=== PATIENT | female | born 1945 | race Caucasian/White ===

== ENCOUNTER → 2016-08-03 | Outpatient (CLI) | payer MEDICARE, OTHER ==
[~2016-08-03] MED LIST: /ACET5TA PO; /AMLO25TA PO; ALBU17IN INH; ALBU17IN NEB; ALBU83IN NEB; AMBI10TA PO; AMLO10TA PO; APRESOLINE PO; ASPI81TA51 PO; ATEN50TA2 PO; AVAP75TA PO; CLOP75TA2 PO; COLA100C PO; DILT60TA PO; DRON40TA PO; ELIQ5TAB PO; IPRASOL4 NEB; LASI40TA PO; LIPI10TA PO; LOPR50TA PO; MAGN400T5 PO; MICR10CA PO; NEUR300C PO; OMEG100011 PO; PEPC1TAB2 PO; PERC7.5T12 PO; PERCOCET PO; SYMB16INH INH; TIOT18INH INH; TYLE325T5 PO; VITA100037 PO; ZOCO20TA PO
[2016-08-03 12:51] LABS: CALCIUM LEVEL 9.3 MG/DL (8.8-10.2); CREATININE FOR GFR 1.45 MG/DL (0.55-1.02); GLOMERULAR FILTRATION RATE 37.9 (>39); POTASSIUM SERUM 4.3 MEQ/L (3.5-5.1)
--- NOTE | 2016-08-03 16:44 | ECGEPIP ---
Stationary ECG Study 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
== END ==
LOC: M LAB 11:16
PROVIDERS: ATTEND Ophthalmology
DX: Z01.818 Encounter for other preprocedural examination (principal); H25.13 Age-related nuclear cataract, bilateral

== ENCOUNTER → 2016-11-10 | Outpatient (CLI) | payer MEDICARE, OTHER, BC ==
[~2016-11-10] MED LIST changes: -COLA100C PO; +COLA100C3 PO
--- NOTE | 2016-11-10 12:07 | REP ---
Pain after sustaining a fall 3 weeks ago. Comparison examination: None. There is asymmetric hip joint space narrowing with buttressing and slight marginal osteophytosis. There is no evidence of an acute fracture or dislocation. IMPRESSION: Chronic changes.
== END ==
LOC: M CLY 11:11
PROVIDERS: ATTEND Nurse Practitioner Family
DX: M25.551 Pain in right hip (principal); W19.XXXD Unspecified fall, subsequent encounter; Y92.89 Other specified places as the place of occurrence of the external cause; Y93.89 Activity, other specified; Y99.8 Other external cause status; N18.9 Chronic kidney disease, unspecified; M54.30 Sciatica, unspecified side; J98.4 Other disorders of lung; B02.29 Other postherpetic nervous system involvement; E78.4 Other hyperlipidemia; E55.9 Vitamin D deficiency, unspecified
CPT/HCPCS: 73502; 94010; G0463

== ENCOUNTER → 2016-12-04 | Outpatient (REF) | payer MEDICARE, OTHER ==
[2016-12-04 13:31] LABS: ALBUMIN 3.9 GM/DL (3.2-5.2); CALCIUM LEVEL 9.9 MG/DL (8.8-10.2); CREATININE FOR GFR 1.74 MG/DL (0.55-1.02); GLOMERULAR FILTRATION RATE 30.7 (>39); PHOSPHORUS LEVEL 4.4 MG/DL (2.5-4.9); POTASSIUM SERUM 4.3 MEQ/L (3.5-5.1)
== END ==
LOC: M SFHCCLAY 08:53
PROVIDERS: ATTEND Nurse Practitioner Family
DX: E78.4 Other hyperlipidemia (principal); N18.9 Chronic kidney disease, unspecified; E55.9 Vitamin D deficiency, unspecified; J98.4 Other disorders of lung

== ENCOUNTER → 2016-12-14 | Outpatient (CLI) | payer MEDICARE, OTHER ==
--- NOTE | 2016-12-14 12:10 | REP ---
Lumbar spine: There are no comparisons. There are five views. Vertebral body heights and alignment are normal. There is a degenerative disc disease at the L 02/03 and 03/04 levels. There is mild facet osteoarthritis. The pedicles and sacroiliac articulations are unremarkable. Impression: Degenerative disc disease. Mild facet osteoarthritis. Signed by Sebas Real MD 12/14/2016 12:01 P
--- NOTE | 2016-12-14 12:47 | REP ---
REASON: Worsening right hip pain. COMPARISON: 11/10/2016 a right hip series. There is bilateral hip degenerative change. There is no evidence of an acute hip fracture or dislocation. Degenerative changes are seen involving the sacroiliac joints and imaged spine. IMPRESSION: Chronic changes as described above. Since the patient has chronic pain consider followup with MRI.
== END ==
LOC: M CLY 11:04
PROVIDERS: ATTEND Nurse Practitioner Family
DX: M53.87 Other specified dorsopathies, lumbosacral region (principal); M16.0 Bilateral primary osteoarthritis of hip

== ENCOUNTER → 2016-12-20 | Outpatient (CLI) | payer MEDICARE, BC, OTHER ==
--- NOTE | 2016-12-20 12:26 | REP ---
MR LUMBAR SPINE WITHOUT CONTRAST: HISTORY: Back pain. Decreased signal intensity on T2-weighted images is present in the lumbar intervertebral discs. The discs are decreased in height. These findings are consistent with disc degeneration. There is no disc bulge or herniation at the L1-2 level. The L1 nerves exit the neural foramina without compression. A diffuse disc bulge is present at the L2-3 level. There is minimal compression of the thecal sac. There is hypertrophy of the ligamenta flava and posterior articulating facets. The L2 nerves exit the neural foramina without compression. A diffuse disc bulge is present at the L3-4 level. There is minimal compression of the thecal sac. There is hypertrophy of the ligamenta flava and posterior articulating facets. The L3 nerves exit the neural foramina without compression. A diffuse disc bulge is present at the L4-5 level. There is hypertrophy of the ligamenta flava and posterior articulating facets. These findings produce mild central canal stenosis. The L4 nerves exit the neural foramina without compression. Fluid is present in the L4-5 facet joints. A diffuse disc bulge and small right paracentral disc extrusion are present at the L5-S1 level. There is inferior migration of disc material. There is minimal compression of the thecal sac and right S1 nerve as it exits the thecal sac. There is hypertrophy of the posterior articulating facets. The L5 nerves exit the neural foramina without compression. The conus medullaris is normal in appearance terminating at the level of the L1-2 intervertebral disc. Increased signal intensity on T2-weighted images is present in the endplates of the L2 through L5 vertebral bodies. This represents degenerative change. IMPRESSION: 1. Diffuse disc bulges at the L2-3 and L3-4 levels with minimal thecal sac compression. 2. Mild central canal stenosis at the L4-5 level secondary to disc bulge, ligamentous and facet hypertrophy. 3. Diffuse disc bulge and small right paracentral disc extrusion at the L5-S1 level with minimal compression of the thecal sac and right S1 nerve as it exits the thecal sac. Signed by Tarun Pardo MD 12/20/2016 12:27 P
--- NOTE | 2016-12-20 15:23 | REP ---
MRI PELVIS WITHOUT CONTRAST: HISTORY: Sciatica, unspecified laterality. The patient relates a fall a few days ago with low back and hip pain. Comparison radiographs of the pelvis are from December 14, 2016. MR TECHNIQUE: Axial coronal and sagittal imaging planes were utilized. T1- and T2-weighted scans were obtained. Sequences include spin echo, turbo spin echo and STIR fat sat sequences. MRI FINDINGS: Cortical and medullary bone signal intensity are normal in the proximal femurs, bony pelvic ring, and sacrum. No occult fracture is seen. There is mild osteoarthritic facet hypertrophy in the L5-S1 and L4-5 facets bilaterally. There is evidence of diffuse osteopenia. There is mild osteoarthritic spurring in the hip joints bilaterally. There is mild degenerative disc narrowing at L3-4 and to a lesser extent at L4-5 in the lumbar spine. No pelvic mass adenopathy or abdominal wall defect is seen. There is left colonic diverticulosis. The uterus is surgically absent. IMPRESSION: No acute abnormality noted. Diffuse osteoporosis and osteoarthritic changes are noted. Signed by Stuart Cruz MD 12/20/2016 04:32 P
== END ==
LOC: M RAD 09:39
PROVIDERS: ATTEND Nurse Practitioner Family
DX: M48.06 Spinal stenosis, lumbar region (principal); M51.27 Other intervertebral disc displacement, lumbosacral region; M81.8 Other osteoporosis without current pathological fracture

== ENCOUNTER 2017-03-12 13:02 | Inpatient (IN) | payer MEDICARE, BC, OTHER ==
[~2017-03-12] VITALS: Ht 160 cm; Wt 68.3 kg
[~2017-03-12 13:02] MED LIST changes: -AVAP75TA PO; +AVAP75TA7 PO; -COLA100C3 PO; +COLA100C5 PO; -VITA100037 PO; +VITA100067 PO
[2017-03-12 13:45] LABS: BASO # 0.2 K/mm3 (0.0-0.2); BASO % 1.2 % (0.0-1.0); EOS # 0.4 K/mm3 (0.0-0.50); EOS % 3.1 % (0.0-3.0); LARGE UNSTAINED CELL # 0.2 K/mm3 (0.0-0.4); LARGE UNSTAINED CELL % 1.8 % (0.0-4.0); LYMPH # 1.5 K/mm3 (1.5-4.5); LYMPH % 11.1 % (24.0-44.0); MEAN CORPUSCULAR HEMOGLOBIN 31.1 pg (27.0-33.0); MEAN CORPUSCULAR HGB CONC 32.7 g/dl (32.0-36.5); MEAN CORPUSCULAR VOLUME 95.1 fl (80.0-96.0); MONO # 0.7 K/mm3 (0.0-0.8); MONO % 5.5 % (0.0-5.0); NEUTROPHILS # 9.1 K/mm3 (1.8-7.7); NEUTROPHILS % 77.2 % (36.0-66.0); PLATELET COUNT, AUTOMATED 343 k/mm3 (150-450); RED CELL DISTRIBUTION WIDTH 13.4 % (11.5-14.5); WHITE BLOOD COUNT 11.8 K/mm3 (4.0-10.0)
[2017-03-12 13:47] LABS: INR 1.54
[2017-03-12 13:56] LABS: ALBUMIN 3.9 GM/DL (3.2-5.2); ALBUMIN/GLOBULIN RATIO 1.11 (1.00-1.93); ALKALINE PHOSPHATASE 58 U/L (45-117); ALT/SGPT 29 U/L (12-78); ANION GAP 9 MEQ/L (8-16); AST/SGOT 18 U/L (15-37); BILIRUBIN,DIRECT 0.1 MG/DL (0.0-0.2); BILIRUBIN,TOTAL 0.4 MG/DL (0.2-1.0); BLOOD UREA NITROGEN 36 MG/DL (7-18); CALCIUM LEVEL 8.5 MG/DL (8.8-10.2); CARBON DIOXIDE LEVEL 29 MEQ/L (21-32); CHLORIDE LEVEL 103 MEQ/L (98-107); CREATININE FOR GFR 1.44 MG/DL (0.55-1.02); GLOMERULAR FILTRATION RATE 38.2 (>39); GLUCOSE, FASTING 93 MG/DL (83-110); MAGNESIUM LEVEL 2.3 MG/DL (1.8-2.4); PHOSPHORUS LEVEL 2.7 MG/DL (2.5-4.9); POTASSIUM SERUM 3.8 MEQ/L (3.5-5.1); SODIUM LEVEL 141 MEQ/L (136-145); TOTAL PROTEIN 7.4 GM/DL (6.4-8.2)
[2017-03-12 14:01] LABS: FREE T4 1.25 NG/DL (0.76-1.46)
[2017-03-12] MEDS ORDERED: ASPI81TA24 PO (15:17)
[2017-03-12] MEDS ORDERED: CALC1CAP31 PO (15:17)
[2017-03-12] MEDS ORDERED: PERC5TAB12 PO (15:17)
[2017-03-12] MEDS ORDERED: AMBI10TA PO (15:17)
[2017-03-12] MEDS ORDERED: ELIQ5TAB PO (15:17)
[2017-03-12] MEDS ORDERED: VITA100066 PO (15:17)
[2017-03-12] MEDS ORDERED: FISH1000 PO (15:17)
[2017-03-12] MEDS ORDERED: IBAN150T5 PO (15:17)
[2017-03-12] MEDS ORDERED: ATEN25TA PO (15:17)
[2017-03-12] MEDS ORDERED: ALBU17IN INH (15:17)
[2017-03-12] MEDS ORDERED: ATOR1TAB19 PO (15:17)
[2017-03-12] MEDS ORDERED: SPIR1CAP INH (15:17)
[2017-03-12] MEDS ORDERED: FURO40TA2 PO (15:17)
--- NOTE | 2017-03-12 15:27 | REP ---
CHEST X-RAY: TWO VIEWS. HISTORY: Palpitations and weakness. COMPARISON: Chest x-ray 05/15/2016. FINDINGS: EKG monitoring electrodes overlie the chest. Heart is not enlarged. The aorta is somewhat tortuous. Pleural angles are sharp. There is no significant bony abnormality. IMPRESSION: No active disease. Signed by Stuart Cruz MD 03/12/2017 06:35 P
[2017-03-12] MEDS ORDERED: ATENOLOL 25 MG TAB PO PRN (18:45)
[2017-03-12] MEDS ORDERED: zolPIDEM TARTRATE 10MG TAB PO PRN (18:45)
[2017-03-12] MEDS ORDERED: PERCOCET 5MG/325MG TAB PO PRN (18:45)
[2017-03-12] MEDS ORDERED: ACETAMINOPHEN TAB 650MG DOSE (2X325MG) PO PRN (18:45)
[2017-03-12] MEDS ORDERED: ALBUTEROL 90 MCG/ACT 8GM HFA INHALER INH PRN (18:45)
[2017-03-12] MEDS ORDERED: ONDANSETRON 4MG/2ML VIAL (J2405) IV PRN (18:45)
[2017-03-12] MEDS ORDERED: APIXABAN 5 MG TAB (ELIQUIS) PO SCH (21:00)
[2017-03-12] MEDS: ASPIRIN 81 MG ENTERIC TAB PO SCH (21:28)
[2017-03-12] MEDS: SENOKOT S TAB PO SCH (21:28)
[2017-03-12] MEDS: ENOXAPARIN 60 MG/0.6 ML SYR (J1650) SC SCH (21:28)
[2017-03-13 01:10] VITALS: BP 145/67
[2017-03-13] MEDS: ATORVASTATIN 10 MG TAB PO SCH ×2 (01:17→21:47)
[2017-03-13 04:45] VITALS: BP 128/65
--- NOTE | 2017-03-13 05:26 | HPE ---
DATE OF ADMISSION: 03/12/2017 PRIMARY CARE PROVIDER: Layla Madrid. DESK PENS ASSEMBLER: Dr. Man. DEMAND EQUIPMENT REPAIRER: Dr. Moore. CHIEF COMPLAINT: Palpitations and generalized weakness. HISTORY OF PRESENT ILLNESS: This is a 71-year-old female patient with underlying medical history of atrial fibrillation on Eliquis for anticoagulation, venous insufficiency, carotid stenosis, hypertension, dyslipidemia, vitamin D deficiency, diverticulosis, chronic obstructive pulmonary disease (COPD) with coronary arterial disease and cardiac stent, chronic kidney disease (CKD), who presented to the hospital because yesterday the patient felt palpitations and found to have a heart rate of 177 had subsequently taken beta blockers, and this morning the patient woke up with the heart rate in the 50s but felt generalized weakness and with vague sensations in the chest. Subsequently the patient presented to the emergency room. In the emergency room, the patient was found to have new T-wave inversions, subsequently discussed with cardiology. Request was made for patient to be admitted to the hospital. The patient currently denies any palpitations. Reported that vague sensation in the chest has been resolved. Denies any fevers, chills, chest pain, pressure, discomfort. Denies any shortness of breath. Currently comfortable. ALLERGIES: 1. AUGMENTIN. 2. CLINDAMYCIN. 3. PENICILLIN. 4. PENICILLIN CLASS REACTORS. 5. PENTAZOCINE. PAST MEDICAL HISTORY: 1. Atrial fibrillation on anticoagulation. 2. Stasis dermatitis. 3. Venous insufficiency. 4. Carotid stenosis. 5. Hypertension. 6. Elevated cholesterol. 7. Low vitamin D. 8. Diverticulosis. 9. Osteopenia. PAST SURGICAL HISTORY: 1. Cardiac stent 2012. 2. Carotid endarterectomy. SOCIAL HISTORY: Smoked one pack per day. Quit about two years ago. Occasionally drinks a beer. REVIEW OF SYSTEMS: Reported palpitations and vague chest discomfort. All other review of systems negative. FAMILY HISTORY: Noncontributory. HOME MEDICATIONS: - Ventolin inhaler four times a day as needed - Eliquis 5 mg by mouth twice a day - aspirin 81 mg by mouth daily - atenolol 25 mg by mouth daily as needed - Lipitor 10 mg by mouth at bedtime - calcitriol 0.25 mcg by mouth five times a week - vitamin D 1000 units by mouth daily - fish oil 1000 mg by mouth daily - Lasix 40 mg by mouth daily - ibandronate 150 mg by mouth every month - Percocet 5/325 mg half tablet by mouth every six hours as needed - Spiriva inhalation daily - Ambien 10 mg by mouth at bedtime PHYSICAL EXAMINATION: VITAL SIGNS: Temperature 96.8, pulse 78, respirations 16, blood pressure 128/61, pulse oximetry 91% on room air. GENERAL: Patient alert and oriented times three in no acute distress. PULMONARY: Bilaterally clear to auscultation. CARDIAC: Irregularly irregular. No tachycardia. ABDOMEN: Soft, nontender. Positive bowel sounds. EXTREMITIES: No clubbing, cyanosis or edema. NEUROLOGIC: No focal deficits. LABORATORY DATA: WBC 11.8, hemoglobin and hematocrit 15.1 over 46.1, platelets 343. Chemistry: Sodium 141, potassium 3.8, chloride 103, bicarbonate 29, BUN 36, creatinine 1.44. Cardiac troponin negative times two. ASSESSMENT AND PLAN: This is a 71-year-old female patient with underlying medical history of chronic kidney disease, atrial fibrillation on Eliquis, venous insufficiency, carotid artery disease, hypertension, dyslipidemia, coronary arterial disease, admitted with palpitations and new T-wave inversions. Electrocardiogram (EKG) showing atrial fibrillation with T-wave inversion V1 through V4. 1. Atrial fibrillation with palpitations and chest discomfort, with new T-wave inversions. The patient's anticoagulation switched to Lovenox. Cardiology consulted. Trend cardiac enzymes, negative times two. Continue aspirin, beta blockers. Monitor blood pressure. Continue Lasix. Telemetry monitoring. 2. Chronic kidney disease (CKD). BUN and creatinine at baseline. Continue to monitor. 3. Chronic obstructive pulmonary disease (COPD). Continue current medications. 4. Atrial fibrillation. Patient on anticoagulation for Lovenox as per Cardiology. Continue beta blockers. Patient on as-needed beta rene which does not make sense. Will further discuss the case with cardiology. 5. Coronary arterial disease. Continue beta rene, aspirin, on Lovenox therapeutic, statin. Will continue to monitor. 6. Deep venous thrombosis (DVT) prophylaxis. Patient on therapeutic anticoagulation. DISPOSITION: Pending cardiology followup. Potential transfer to [facility] for cardiac catheterization if patient's condition does not improve.
--- NOTE | 2017-03-13 05:49 | ECGEPIP ---
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
[2017-03-13 06:01] LABS: MEAN CORPUSCULAR HEMOGLOBIN 30.8 pg (27.0-33.0); MEAN CORPUSCULAR VOLUME 93.4 fl (80.0-96.0); RED CELL DISTRIBUTION WIDTH 13.2 % (11.5-14.5); WHITE BLOOD COUNT 9.3 K/mm3 (4.0-10.0)
[2017-03-13 06:23] LABS: CALCIUM LEVEL 8.8 MG/DL (8.8-10.2); CREATININE FOR GFR 1.29 MG/DL (0.55-1.02); GLOMERULAR FILTRATION RATE 43.4 (>39); MAGNESIUM LEVEL 2.3 MG/DL (1.8-2.4); POTASSIUM SERUM 3.7 MEQ/L (3.5-5.1)
[2017-03-13 07:40] VITALS: BP 146/63
[2017-03-13] MEDS ORDERED: TIOTROPIUM INHALER/CAPSULE (SPIRIVA) INH SCH (08:00)
[2017-03-13] MEDS ORDERED: VITAMIN D 1,000 INTERNATIONAL UNITS TABLET PO SCH (09:00)
[2017-03-13] MEDS ORDERED: OMEGA-3 1050MG CAPSULE PO SCH (09:00)
[2017-03-13] MEDS: ATENOLOL 25 MG TAB PO SCH ×2 (09:00→09:32)
[2017-03-13] MEDS ORDERED: FUROSEMIDE 40 MG TAB PO SCH (09:00)
[2017-03-13] MEDS: ENOXAPARIN 60 MG/0.6 ML SYR (J1650) SC SCH ×2 (09:31→21:48)
[2017-03-13] MEDS: SENOKOT S TAB PO SCH ×2 (09:32→21:47)
--- NOTE | 2017-03-13 09:36 | ECGEPIP ---
Stationary ECG Study [facility] - ED Test Date: 2017-03-12 Pat Name: BRAD GARCIA Department: Room: - Gender: F Transportation Dispatch Manager: rn : 1945 Requested By: SUSI Porter Order Number: [id number] Reading MD: Whit Edgar Measurements Intervals [place] Rate: 58 P: 61 ME: 169 QRS: -4 QRSD: 81 T: 162 QT: 458 QTc: 453 Interpretive Statements SINUS BRADYCARDIA LAD INFERIOR INFARCT, AGE INDETERMINATE ST DEVIATION AND MARKED T-WAVE ABNORMALITY, CONSIDER ANTEROLATERAL ISCHEMIA, NEW 08/03/16, CLINICAL CORRELATION DECREASED RATE 08/03/16 Electronically Signed On 03-13-2017 9:36:30 EDT by Whit Edgar
--- NOTE | 2017-03-13 09:40 | ECGEPIP ---
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
--- NOTE | 2017-03-13 10:33 | CR ---
DATE OF CONSULTATION: 03/13/2017 REFERRING PHYSICIAN: DR. Keya Dyer INDICATION: Atrial fibrillation, abnormal electrocardiogram (ECG). HISTORY OF PRESENT ILLNESS: Mrs. Aguirre is a pleasant 71-year-old female who is a patient of my partner Dr. Man. She presented to [facility] yesterday after she contacted our office and was instructed to do so. She had an episode of palpitations the day prior to admission. She has known paroxysmal atrial fibrillation and she typically would take a dose of atenolol and after few hours the palpitations resolve. The same thing happened this time but her heart rate was higher than typically present. She detected by her pulse ox monitor a ventricular rate 177 beats per minute. Then after she woke up yesterday morning, she actually felt tired and her heart rate was only about 50 beats per minute. On presentation to the emergency room (ER), she was relatively asymptomatic but had deep precordial T-wave inversions that are new compared to her prior electrocardiogram available from July. She ruled out for myocardial infarction with no elevation in troponin but she had a very small elevation in the CK-MB fraction. She does admit that during the episode of palpitations, she did have some chest discomfort but it was not overly severe. The dominant sensation was palpitation. PAST MEDICAL HISTORY: 1. Paroxysmal atrial fibrillation. She reports that recently she has had episodes as frequently as several times a week. The frequency has been increasing progressively 2. Coronary artery disease status post percutaneous coronary intervention (PCI) with bare metal stent to left circumflex artery in 2012. Her last evaluation for ischemia was a nuclear stress test last year that was negative. She has preserved left ventricular systolic function based on echocardiogram from December 2015. 3. Peripheral vascular disease. She has history of right carotid endarterectomy. 4. Hypertension. 5. Dyslipidemia. 6. Diverticulosis. 7. Chronic obstructive pulmonary disease (COPD). 8. Osteopenia. PAST SURGICAL HISTORY: Carotid endarterectomy. Herniorrhaphy. Hysterectomy. Tonsillectomy. Cataract surgery Appendectomy. FAMILY HISTORY: No longer relevant. Her father has from unclear reason and there are no first-degree relatives with early coronary artery disease. SOCIAL HISTORY: The patient is an ex-smoker. She quit approximately 4 years ago. There is no alcohol use. She currently lives alone. OUTPATIENT MEDICATIONS: - Ventolin as needed - Eliquis 5 twice a day - aspirin 81 a day - atenolol 25 mg daily on days when she has palpitations - Lipitor 10 mg a day - calcitriol 0.25 five times a week - vitamin D 1000 a day - fish oil 1000 a day - Lasix 40 a day - Percocet as needed - Spiriva - Ambien ALLERGIES: She reports allergy or intolerance to AUGMENTIN CLINDAMYCIN and PENICILLIN and PENTAZOCINE. REVIEW OF SYSTEMS: On the review of systems, there is no history of stroke. She denies any recent fever, nausea, vomiting, diarrhea. She does not have episode of chest discomfort outside the episode of atrial fibrillation. There is no paroxysmal nocturnal dyspnea (PND), orthopnea. She typically sleeps with oxygen. On no abdominal pain. No blood in her stools. No hematemesis. No peripheral edema. No syncope. She has been lately quite debilitated due to orthopedic reasons with back pain and knee pain. PHYSICAL EXAMINATION: Mrs. Aguirre is a 71-year-old female who appears to be tired but otherwise comfortable and in no acute distress. Blood pressure 146/63, heart rate has been mostly in 60s and occasionally 70s while in sinus rhythm. She is afebrile. Saturation is 90-96% on room air. Her jugular venous pulse (JVP) is not elevated. There is a healed scar of the right carotid endarterectomy. Lungs are clear to auscultation with good air movement. Heart: Exam reveals regular rhythm. There is murmur at the base approximately1-2/6 intensity radiating to both carotid arteries. I do not appreciate a rub or gallop. Abdomen is soft, nontender. No hepatosplenomegaly. There is no peripheral edema per pulses are of good quality. LABORATORY: Basic metabolic panel: Potassium 3.7, BUN 35, creatinine 1.34, GFR 43 and glucose is 106. There are four sets of cardiac enzyme. Her troponin is consistently negative. Her CK MB peaked at 10.1, which was the initial one. The relative index, at that point, was 14. BNP is 290, albumin 3.9, TSH 1.4. CBC is normal and her INR is 1.5. There are several ECGs all revealing sinus rhythm and precordial T-wave inversions which are new compared to EKGs from July. Review of telemetry tracing reveals ongoing sinus rhythm with occasional ventricular ectopy. She did have a chest x-ray in the emergency room that did not reveal any obvious abnormality suggestive of CHF or cardiomegaly. ASSESSMENT/PLAN: Mrs. Aguirre is a 71-year-old female who has established coronary artery disease and who presents after an episode of atrial fibrillation with rapid ventricular response. She has a new T-wave inversion on EKG and had some degree of chest discomfort during the episode. I see two separate issues. 1. Atrial fibrillation: So far she has been treated with as needed use of atenolol. Because the frequency is progressively increasing I think this will not be acceptable. She was started on daily atenolol in the hospital, which I agree with. She most likely will need additional antiarrhythmics. Alternative is ablation. I ask the primary team to discontinue Eliquis to allow for potential cardiac catheterization and she has been currently on Lovenox. I spoke with the patient and her [id number] and we agreed that we will try to transfer to [place] for an angiogram. Provided she has no new coronary artery disease, she can also be seen by electrophysiology to assist with further management of atrial fibrillation. 2. The second issues coronary artery disease. Because she has a new T-wave abnormality and had episode of chest discomfort during tachycardia, I believe it is appropriate to pursue coronary angiogram. I spoke about the plan with the patient and Dr. Man and they are both in agreement. I offered the alternative of conservative management but we decided to use the invasive root for expedition and also due to the option of electrophysiology consultation at the same time. Thank you for this consultation. [employer]
--- NOTE | 2017-03-13 10:37 | IPNPDOC ---
Subjective Date Seen The patient was seen on 03/13/17. Subjective Chief Complaint/HPI The patient is a 71-year-old female admitted with a reason for visit of Palpitations. Events since last encounter Pt c/o intermittent palpitations in her chest, lasts for up to a few minutes at a time. She denies a triggers, and she just tried to remain calm and they resolve on their own. States that she has pain in her central chest that radiates under her R breast and into her back, this is chronic burning pain x 4.5 y assoc with Shingles. General: Denies: Fatigue Constitutional: Denies: Chills, Fever Pulmonary: Denies: Dyspnea, Cough Cardiovascular: Reports: Palpitations, Denies: Orthopnea, Lt Headedness Gastrointestinal: Denies: Nausea, Vomiting, Diarrhea Psych: Reports: Mood Normal Objective Physical Examination General Exam: Positive: Alert, No Acute Distress ENT Exam: Positive: Mucous membr. moist/pink Chest Exam: Positive: Normal air movement, Rales (fibrotic rales B bases), Negative: Clear to auscultation Heart Exam: Positive: Rate Normal, Normal S1, Normal S2 Abdomen Exam: Positive: Normal bowel sounds, Soft, Negative: Tenderness Extremity Exam: Negative: Edema Assessment /Plan Problems (1) Abnormal EKG Status: Acute Discussed With: Nurse, Patient Problem Specific Plan: Monitor Clinically, Repeat Labs Problem Text: Pt with new changes on EKG, Dr Moore has seen the pt and is working with [facility] to transfer the pt for further mgmt/ poss cardiac cath. She is Eliquis as outpt, this has been held, she is on ASA, and Lovenox currently. Cont with Atenolol and Lipitor. (2) A-fib Status: Chronic Response to Treatment: Controlled Discussed With: Patient Problem Specific Plan: Monitor Clinically Problem Text: On tele, rate is controlled. Cont with Atenolol, current on Lovenox for anticoags (3) CAD (coronary artery disease) Status: Chronic Discussed With: Patient Problem Specific Plan: Monitor Clinically, Repeat Labs Problem Text: As above. (4) COPD (chronic obstructive pulmonary disease) Status: Chronic Response to Treatment: Stable Problem Specific Plan: Monitor Clinically (5) Palpitations Status: Acute Problem Specific Plan: Monitor Clinically Problem Text: see above. Plan/VTE VTE Prophylaxis Ordered?: Yes VS, I&O, 24H, [place] Vital Signs/I&O Vital Signs Date Time Temp Pulse Resp B/P (MAP) Pulse Ox O2 Delivery O2 Flow Rate FiO2 03/13/17 08:23 Room Air 03/13/17 07:40 97.7 67 22 146/63 (90) 90 I&O- Last 24 Hours up to 6 AM 03/13/17 06:00 Intake Total 0 ml Output Total 0 ml Balance 0 ml Laboratory Data 24H LABS Laboratory Tests 2 03/12/17 13:17: White Blood Count 11.8H, Red Blood Count 4.85, Hemoglobin 15.1, Hematocrit 46.1 , Mean Corpuscular Volume 95.1, Mean Corpuscular Hemoglobin 31.1, Mean Corpuscular Hemoglobin Concent 32.7, Red Cell Distribution Width 13.4, Platelet Count 343, Neutrophils (%) (Auto) 77.2H, Lymphocytes (%) (Auto) 11.1L, Monocytes (%) (Auto) 5.5H, Eosinophils (%) (Auto) 3.1H, Basophils (%) (Auto) 1.2H, Neutrophils # (Auto) 9.1H, Lymphocytes # (Auto) 1.5, Monocytes # (Auto) 0.7, Eosinophils # (Auto) 0.4, Basophils # (Auto) 0.2, Large Unclassified Cells % 1.8, Large Unclassified Cells # 0.2, Prothrombin Time 18.9H, Prothromb Time International Ratio 1.54, Activated Partial Thromboplast Time 39.4H, Anion Gap 9 , Glomerular Filtration Rate 38.2L, Calcium Level 8.5L, Phosphorus Level 2.7, Magnesium Level 2.3, Aspartate Amino Transf (AST/SGOT) 18, Alanine Aminotransferase (ALT/SGPT) 29, Alkaline Phosphatase 58, Total Bilirubin 0.4, Direct Bilirubin 0.1, Total Creatine Kinase 72, Creatine Kinase MB 10.1H, Creatine Kinase MB Relative Index 14.02H, Troponin I < 0.02, B-Type Natriuretic Peptide 292H, Total Protein 7.4, Albumin 3.9, Albumin/Globulin Ratio 1.11, Thyroid Stimulating Hormone (TSH) 1.420, Free Thyroxine 1.25 03/12/17 17:01: Total Creatine Kinase 60, Creatine Kinase MB 7.5H, Creatine Kinase MB Relative Index 12.50H, Troponin I 0.02 03/13/17 00:26: Total Creatine Kinase 42, Creatine Kinase MB 4.0H, Creatine Kinase MB Relative Index 9.52H, Troponin I < 0.02 03/13/17 05:39: Anion Gap 8, Glomerular Filtration Rate 43.4, Calcium Level 8.8, Magnesium Level 2.3, Total Creatine Kinase 37, Creatine Kinase MB 2.8, Creatine Kinase MB Relative Index 7.56H, Troponin I 0.02, Blood Urea Nitrogen 35H, Creatinine 1.29H , Sodium Level 142, Potassium Level 3.7, Chloride Level 106, Carbon Dioxide Level 28 CBC/BMP Laboratory Tests 03/12/17 13:17 Red Blood Count 4.85, Mean Corpuscular Volume 95.1, Mean Corpuscular Hemoglobin 31.1, Mean Corpuscular Hemoglobin Concent 32.7, Red Cell Distribution Width 13.4 , Neutrophils (%) (Auto) 77.2 H, Lymphocytes (%) (Auto) 11.1 L, Monocytes (%) ( Auto) 5.5 H, Eosinophils (%) (Auto) 3.1 H, Basophils (%) (Auto) 1.2 H, Neutrophils # (Auto) 9.1 H, Lymphocytes # (Auto) 1.5, Monocytes # (Auto) 0.7, Eosinophils # (Auto) 0.4, Basophils # (Auto) 0.2 03/13/17 05:39 Red Blood Count 4.45, Mean Corpuscular Volume 93.4, Mean Corpuscular Hemoglobin 30.8, Mean Corpuscular Hemoglobin Concent 33.0, Red Cell Distribution Width 13.2 , Calcium Level 8.8, Total Creatine Kinase 37 COURTNEY LAGOS PA-C Mar 13, 2017 10:37
[2017-03-13 12:15] VITALS: BP 135/65
[2017-03-13] MEDS ORDERED: FLEET ENEMA PR PRN (13:30)
[2017-03-13] MEDS: MIRALAX *UNIT DOSE* 17GM PACKET PO SCH ×2 (13:57→21:00)
[2017-03-13 15:30] VITALS: BP 148/65
[2017-03-13 19:45] VITALS: BP 144/66
--- NOTE | 2017-03-13 20:42 | ECGEPIP ---
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 OLD INFERIOR MYOCARDIAL INFARCT Electronically Signed On 03-13-2017 20:42:16 EDT by Saúl Perez
[2017-03-13] MEDS: ASPIRIN 81 MG ENTERIC TAB PO SCH (21:47)
[2017-03-14 00:06] VITALS: BP 138/63
[2017-03-14] MEDS ORDERED: SLF 3 ML SYR IV PRN (02:15)
[2017-03-14 04:20] VITALS: BP 154/76
[2017-03-14 05:45] LABS: MEAN CORPUSCULAR HEMOGLOBIN 30.7 pg (27.0-33.0); MEAN CORPUSCULAR HGB CONC 32.5 g/dl (32.0-36.5); MEAN CORPUSCULAR VOLUME 94.5 fl (80.0-96.0); RED CELL DISTRIBUTION WIDTH 13.4 % (11.5-14.5); WHITE BLOOD COUNT 9.2 K/mm3 (4.0-10.0)
[2017-03-14 05:58] LABS: CALCIUM LEVEL 8.7 MG/DL (8.8-10.2); CREATININE FOR GFR 1.44 MG/DL (0.55-1.02); GLOMERULAR FILTRATION RATE 38.2 (>39); MAGNESIUM LEVEL 2.4 MG/DL (1.8-2.4)
[2017-03-14] MEDS ORDERED: SLF 3 ML SYR IV SCH (06:00)
[2017-03-14 06:38] VITALS: BP 143/67
--- NOTE | 2017-03-14 19:58 | ECHO ---
DATE OF PROCEDURE: 03/13/2017 REFERRING PHYSICIAN: Keya Dyer MD PATIENT LOCATION: Room 3227 REASON FOR ECHOCARDIOGRAM: Atrial fibrillation. 2D MEASUREMENTS: IVS: 1.3 cm LV: 3.4 cm LVPW: 1.2 cm LA: 3.2 cm Aorta: 3.0 cm IVC: 1.8 cm DOPPLER MEASUREMENTS: Peak velocity across the aortic valve: 1.5 m/s Peak velocity across the LVOT: 0.85 m/s Mitral E: 0.43, Mitral A: 0.88, with a ratio of 0.5 2D COMMENTS: 1. Mildly increased left ventricular wall thickness with normal left ventricular size and a normal global left ventricular systolic function. The estimated left ventricular systolic ejection fraction is 60 to 65%. 2. Normal left atrium. Normal right atrium and right ventricle. 3. The atrial septum appeared to be normal without evidence of defect or shunt. 4. Normal aortic root. 5. No pericardial effusion seen. 6. Minimally calcified aortic valve with normal leaflet excursion. Mildly calcified mitral annulus with normal anterior mitral valve leaflet motion. Normal tricuspid valve. The pulmonic valve and proximal pulmonary artery branches were not well visualized. 7. The inferior vena cava was normal in size, central venous pressure is most likely normal. DOPPLER: It detects mild aortic regurgitation, mild mitral regurgitation. Abnormal relaxation pattern was noted across the mitral valve leaflets as well as the mitral valve annulus consistent with grade 1 left ventricular diastolic dysfunction. IMPRESSION: 1. Normal global left ventricular systolic function with mild concentric left ventricular hypertrophy. There are features of left ventricular diastolic dysfunction, grade 1. 2. Aortic valve sclerosis with mild aortic regurgitation, but no significant aortic stenosis. 3. Mitral annulus calcification with mild mitral regurgitation. MTDD
--- NOTE | 2017-03-25 15:27 | DSES ---
DATE OF ADMISSION: 03/13/2017 DATE OF DISCHARGE/DATE OF TRANSFER: 03/14/2017 PRIMARY DIAGNOSIS: Acute coronary syndrome. SECONDARY DIAGNOSES: 1. Atrial fibrillation. 2. Coronary disease. 3. Chronic obstructive pulmonary disease (COPD). 4. Palpitations. HISTORY: Pearl Aguirre is a 71-year-old admitted with palpitations. Details in the history and physical on admission. HOSPITAL COURSE: Patient developed new T-wave inversions on EKG after presenting with atrial fibrillation with rapid ventricular response. She was seen in consultation by Dr. Moore, who recommended transfer for coronary angiogram. She was transferred on 03/14/2017. DISPOSITION: Patient was transferred to [facility] for a heart catheterization. MEDICINES ON TRANSFER: - Lovenox 50 mg every 12 hours - aspirin 81 mg - atorvastatin 10 mg daily - Senokot S - vitamin D - fish oil - Lasix 40 mg daily - Spiriva one inhalation daily - Percocet 5/325 mg half tablet every 6 hours as needed - atenolol 25 mg daily
== END 2017-03-14 07:12 | disposition short-term general hospital (02) | DRG 303 ==
LOC: M ED 13:02 → M ED INP 18:48 → M PCU 03-13 01:08 → OBSVTOIN 03-13 14:12
PROVIDERS: ADMIT Hospitalist; ATTEND Family Medicine
DX: I25.119 Atherosclerotic heart disease of native coronary artery with unspecified angina pectoris (principal); I24.8 Other forms of acute ischemic heart disease; I48.0 Paroxysmal atrial fibrillation; I87.2 Venous insufficiency (chronic) (peripheral); I65.29 Occlusion and stenosis of unspecified carotid artery; I12.9 Hypertensive chronic kidney disease with stage 1 through stage 4 chronic kidney disease, or unspecified chronic kidney disease; E78.5 Hyperlipidemia, unspecified; E55.9 Vitamin D deficiency, unspecified; K57.90 Diverticulosis of intestine, part unspecified, without perforation or abscess without bleeding; J44.9 Chronic obstructive pulmonary disease, unspecified; M85.80 Other specified disorders of bone density and structure, unspecified site; I73.9 Peripheral vascular disease, unspecified; N18.9 Chronic kidney disease, unspecified; Z79.01 Long term (current) use of anticoagulants; Z95.5 Presence of coronary angioplasty implant and graft; Z88.0 Allergy status to penicillin; Z88.1 Allergy status to other antibiotic agents; Z88.8 Allergy status to other drugs, medicaments and biological substances; Z87.891 Personal history of nicotine dependence; Z79.82 Long term (current) use of aspirin; Z79.891 Long term (current) use of opiate analgesic; Z79.899 Other long term (current) drug therapy

== ENCOUNTER → 2017-08-02 | Outpatient (REF) | payer MEDICARE, OTHER ==
[2017-08-02 12:08] LABS: HEMATOCRIT 42.1 % (36.0-47.0); HEMOGLOBIN 13.2 g/dl (12.0-16.0); MEAN CORPUSCULAR HEMOGLOBIN 30.2 pg (27.0-33.0); MEAN CORPUSCULAR HGB CONC 31.4 g/dl (32.0-36.5); MEAN CORPUSCULAR VOLUME 96.3 fl (80.0-96.0); PLATELET COUNT, AUTOMATED 275 10^3/uL (150-450); RED BLOOD COUNT 4.37 10^6/uL (4.00-5.40); RED CELL DISTRIBUTION WIDTH 12.9 % (11.5-14.5)
[2017-08-02 12:44] LABS: ALBUMIN 3.4 GM/DL (3.2-5.2); ALBUMIN/GLOBULIN RATIO 1.13 (1.00-1.93); ALKALINE PHOSPHATASE 80 U/L (45-117); ALT/SGPT 20 U/L (12-78); ANION GAP 9 MEQ/L (8-16); AST/SGOT 12 U/L (7-37); BILIRUBIN,TOTAL 0.4 MG/DL (0.2-1.0); BLOOD UREA NITROGEN 62 MG/DL (7-18); CALCIUM LEVEL 9.2 MG/DL (8.8-10.2); CARBON DIOXIDE LEVEL 28 MEQ/L (21-32); CHLORIDE LEVEL 107 MEQ/L (98-107); CHOLESTEROL LEVEL 181 MG/DL (<200); CREATININE FOR GFR 2.49 MG/DL (0.55-1.02); GLOMERULAR FILTRATION RATE 20.2 (>39); GLUCOSE, FASTING 111 MG/DL (83-110); HDL CHOLESTEROL 48 MG/DL (>40); LDL CHOLESTEROL 109.8 MG/DL (<100); NON-HDL-C 133 MG/DL; POTASSIUM SERUM 4.5 MEQ/L (3.5-5.1); SODIUM LEVEL 144 MEQ/L (136-145); TOTAL PROTEIN 6.4 GM/DL (6.4-8.2); TRIGLYCERIDES LEVEL 116 MG/DL (<150)
[2017-08-02 12:52] LABS: TOTAL 25(OH) VITAMIN D 31.5 NG/ML (30.0-100.0)
== END ==
LOC: M SFHCCLAY 11:53
DX: E55.9 Vitamin D deficiency, unspecified (principal); I10 Essential (primary) hypertension; E78.4 Other hyperlipidemia
CPT/HCPCS: 80053

== ENCOUNTER → 2017-09-14 | Outpatient (REF) | payer MEDICARE, OTHER ==
[2017-09-14 17:44] LABS: ALBUMIN 3.4 GM/DL (3.2-5.2); ANION GAP 9 MEQ/L (8-16); BLOOD UREA NITROGEN 31 MG/DL (7-18); CALCIUM LEVEL 8.8 MG/DL (8.8-10.2); CARBON DIOXIDE LEVEL 27 MEQ/L (21-32); CHLORIDE LEVEL 108 MEQ/L (98-107); GLOMERULAR FILTRATION RATE 31.5 (>39); GLUCOSE, FASTING 138 MG/DL (70-100); PHOSPHORUS LEVEL 3.1 MG/DL (2.5-4.9); POTASSIUM SERUM 4.3 MEQ/L (3.5-5.1); SODIUM LEVEL 144 MEQ/L (136-145)
== END ==
LOC: M SFHCCLAY 09:52
DX: I25.9 Chronic ischemic heart disease, unspecified (principal); J98.4 Other disorders of lung; I11.0 Hypertensive heart disease with heart failure; I50.9 Heart failure, unspecified; I73.89 Other specified peripheral vascular diseases; E78.4 Other hyperlipidemia; E55.9 Vitamin D deficiency, unspecified
CPT/HCPCS: 80069

== ENCOUNTER → 2017-11-15 | Outpatient (REF) | payer MEDICARE, OTHER ==
[2017-11-15 18:18] LABS: BASO # 0.1 10^3/uL (0.0-0.2); BASO % 0.9 % (0.0-1.0); EOS # 0.3 10^3/uL (0.0-0.50); HEMATOCRIT 37.3 % (36.0-47.0); HEMOGLOBIN 11.7 g/dl (12.0-15.5); IMMATURE GRANULOCYTE % 3.1 % (0-3.0); LYMPH # 1.1 10^3/uL (1.5-4.5); MEAN CORPUSCULAR HEMOGLOBIN 30.4 pg (27.0-33.0); MEAN CORPUSCULAR HGB CONC 31.4 g/dl (32.0-36.5); MEAN CORPUSCULAR VOLUME 96.9 fl (80.0-96.0); MONO # 0.6 10^3/uL (0.0-0.8); MONO % 6.9 % (0.0-5.0); NEUTROPHILS # 6.9 10^3/uL (1.8-7.7); NEUTROPHILS % 74.1 % (36.0-66.0); PLATELET COUNT, AUTOMATED 308 10^3/uL (150-450); RED BLOOD COUNT 3.85 10^6/uL (4.00-5.40); RED CELL DISTRIBUTION WIDTH 14.2 % (11.5-14.5); WHITE BLOOD COUNT 9.3 10^3/uL (4.0-10.0)
[2017-11-15 18:31] LABS: BLOOD UREA NITROGEN 42 MG/DL (7-18)
[2017-11-15 18:31] LABS: CREATININE FOR GFR 1.97 MG/DL (0.55-1.30); GLOMERULAR FILTRATION RATE 26.5 (>39)
== END ==
LOC: M SFHCCLAY 11:11
DX: J04.0 Acute laryngitis (principal)

== ENCOUNTER → 2017-11-15 | Outpatient (CLI) | payer MEDICARE, OTHER | LOC: M CLY 11:06 | DX: R93.8 Abnormal findings on diagnostic imaging of other specified body structures (principal); R04.2 Hemoptysis; J04.0 Acute laryngitis | CPT/HCPCS: 82565 ==

== ENCOUNTER → 2017-11-16 | Outpatient (CLI) | payer MEDICARE, OTHER | LOC: M RAD 09:48 | DX: R91.1 Solitary pulmonary nodule (principal); R91.8 Other nonspecific abnormal finding of lung field; R04.2 Hemoptysis | CPT/HCPCS: 71250 ==

== ENCOUNTER 2017-11-28 10:19 | Inpatient (IN) | payer MEDICARE, BC, OTHER ==
[2017-11-28] MEDS: VITAMIN D 1,000 INTERNATIONAL UNITS TABLET PO (09:00)
[2017-11-28] MEDS: FUROSEMIDE 40 MG TAB PO (09:00)
[2017-11-28] MEDS: CALCITRIOL 0.25 MCG CAP (S0169) PO (09:00)
[2017-11-28] MEDS ORDERED: LIDOCAINE 1% MDV 20ML VIAL SQ (10:30)
[2017-11-28] MEDS: LR 1,000 ML IV ×2 (11:00→15:00)
[2017-11-28] MEDS ORDERED: ROCURONIUM BROMIDE 50 MG/5 ML VIAL As Ordered (13:31)
[2017-11-28] MEDS ORDERED: ONDANSETRON 4MG/2ML VIAL (J2405) As Ordered (13:31)
[2017-11-28] MEDS ORDERED: LIDOCAINE 2% INJ 100 MG/5 ML SDV (FOR ANES.) As Ordered (13:31)
[2017-11-28] MEDS ORDERED: dexameTHASONE 4 MG/ML 1ML VIAL (J1100) As Ordered (13:31)
[2017-11-28] MEDS ORDERED: MIDAZOLAM INJ 2 MG/2 ML VIAL (J2250) As Ordered (13:31)
[2017-11-28] MEDS ORDERED: fentaNYL 250 MCG/5 ML INJECTION (J3010) As Ordered (13:31)
[2017-11-28] MEDS ORDERED: PHENYLephrine HCL 500 MCG/5 ML (100MCG/ML) SYRINGE (J2370) As Ordered (13:31)
[2017-11-28] MEDS ORDERED: SUCCINYLCHOLINE 100 MG/5 ML SYRINGE (J0330) As Ordered (13:32)
[2017-11-28] MEDS ORDERED: GLYCOPYRROLATE INJ 0.2 MG/ML 2 ML VIAL As Ordered ×2 (13:44)
[2017-11-28] MEDS ORDERED: NEOSTIGMINE 10 MG/10 ML VIAL (J2710) As Ordered (13:44)
[2017-11-28] MEDS: LIDOCAINE W/EPINEPHRINE 1% 20ML VIAL As Ordered (14:10)
[2017-11-28] MEDS ORDERED: ESMOLOL INJ 100MG/10ML VIAL As Ordered (14:14)
[2017-11-28] MEDS ORDERED: fentaNYL 100 MCG/2 ML INJECTION (J3010) As Ordered (14:41)
[2017-11-28] MEDS: fentaNYL 100 MCG/2 ML INJECTION (J3010) IV ×5 (14:52→20:58)
[2017-11-28] MEDS ORDERED: MEPERIDINE INJ 25 MG/ML VIAL (J2175) IV (15:00)
[2017-11-28] MEDS ORDERED: PERCOCET 5MG/325MG TAB PO (15:00)
[2017-11-28] MEDS ORDERED: METOCLOPRAMIDE INJ 10MG/2ML VIAL (J2765) IV (15:00)
[2017-11-28] MEDS ORDERED: ONDANSETRON 4MG/2ML VIAL (J2405) IV (15:00)
[2017-11-28] MEDS: NORCO, ANEXSIA 5/325MG TABLET (HYDROcodone/ACETAMINOPHEN) PO (18:57)
[2017-11-28] MEDS: ASPIRIN 81 MG ENTERIC TAB PO (20:59)
[2017-11-28] MEDS: ATORVASTATIN 10 MG TAB PO (21:00)
[2017-11-29] MEDS: NORCO, ANEXSIA 5/325MG TABLET (HYDROcodone/ACETAMINOPHEN) PO ×4 (00:24→22:02)
[2017-11-29 05:08] LABS: HEMOGLOBIN 10.7 g/dl (12.0-15.5); MEAN CORPUSCULAR HEMOGLOBIN 30.1 pg (27.0-33.0); MEAN CORPUSCULAR HGB CONC 31.5 g/dl (32.0-36.5); MEAN CORPUSCULAR VOLUME 95.8 fl (80.0-96.0); PLATELET COUNT, AUTOMATED 272 10^3/uL (150-450); RED BLOOD COUNT 3.55 10^6/uL (4.00-5.40); RED CELL DISTRIBUTION WIDTH 13.7 % (11.5-14.5); WHITE BLOOD COUNT 13.7 10^3/uL (4.0-10.0)
[2017-11-29 05:25] LABS: ANION GAP 3 MEQ/L (8-16); BLOOD UREA NITROGEN 39 MG/DL (7-18); CALCIUM LEVEL 8.8 MG/DL (8.8-10.2); CARBON DIOXIDE LEVEL 32 MEQ/L (21-32); CHLORIDE LEVEL 106 MEQ/L (98-107); CREATININE FOR GFR 1.55 MG/DL (0.55-1.30); GLUCOSE, FASTING 113 MG/DL (70-100); MAGNESIUM LEVEL 2.3 MG/DL (1.8-2.4); POTASSIUM SERUM 4.9 MEQ/L (3.5-5.1); SODIUM LEVEL 141 MEQ/L (136-145)
[2017-11-29] MEDS: TIOTROPIUM INHALER/CAPSULE (SPIRIVA) INH (09:00)
[2017-11-29] MEDS ORDERED: ATENOLOL 25 MG TAB PO (09:00)
[2017-11-29] MEDS: VITAMIN D 1,000 INTERNATIONAL UNITS TABLET PO ×2 (09:00→09:17)
[2017-11-29] MEDS: CALCITRIOL 0.25 MCG CAP (S0169) PO ×2 (09:00→09:17)
[2017-11-29] MEDS: FUROSEMIDE 40 MG TAB PO (09:17)
[2017-11-29] MEDS: ATENOLOL 25 MG TAB PO (09:41)
[2017-11-29] MEDS: APIXABAN 5 MG TAB (ELIQUIS) PO (20:34)
[2017-11-29] MEDS: ATORVASTATIN 10 MG TAB PO (20:34)
[2017-11-29] MEDS: ASPIRIN 81 MG ENTERIC TAB PO (20:34)
[2017-11-30] MEDS: ATENOLOL 25 MG TAB PO ×2 (04:45→09:00)
[2017-11-30 05:00] LABS: BASO # 0.1 10^3/uL (0.0-0.2); BASO % 0.4 % (0.0-1.0); EOS # 0.1 10^3/uL (0.0-0.50); EOS % 0.8 % (0.0-3.0); HEMATOCRIT 36.1 % (36.0-47.0); HEMOGLOBIN 11.4 g/dl (12.0-15.5); IMMATURE GRANULOCYTE % 1.5 % (0-3.0); LYMPH # 1.5 10^3/uL (1.5-4.5); LYMPH % 11.8 % (24.0-44.0); MEAN CORPUSCULAR HEMOGLOBIN 30.3 pg (27.0-33.0); MEAN CORPUSCULAR HGB CONC 31.6 g/dl (32.0-36.5); MONO # 1.3 10^3/uL (0.0-0.8); MONO % 10.9 % (0.0-5.0); NEUTROPHILS # 9.1 10^3/uL (1.8-7.7); NEUTROPHILS % 74.6 % (36.0-66.0); PLATELET COUNT, AUTOMATED 299 10^3/uL (150-450); RED BLOOD COUNT 3.76 10^6/uL (4.00-5.40); RED CELL DISTRIBUTION WIDTH 13.7 % (11.5-14.5); WHITE BLOOD COUNT 12.3 10^3/uL (4.0-10.0)
[2017-11-30 05:29] LABS: ANION GAP 5 MEQ/L (8-16); BLOOD UREA NITROGEN 44 MG/DL (7-18); CALCIUM LEVEL 8.9 MG/DL (8.8-10.2); CARBON DIOXIDE LEVEL 33 MEQ/L (21-32); CHLORIDE LEVEL 104 MEQ/L (98-107); CREATININE FOR GFR 1.73 MG/DL (0.55-1.30); GLOMERULAR FILTRATION RATE 30.8 (>39); GLUCOSE, FASTING 86 MG/DL (70-100); MAGNESIUM LEVEL 2.3 MG/DL (1.8-2.4); POTASSIUM SERUM 3.9 MEQ/L (3.5-5.1); SODIUM LEVEL 142 MEQ/L (136-145)
[2017-11-30] MEDS: METOPROLOL 5 MG/5 ML VIAL IV ×3 (05:30→06:30)
[2017-11-30] MEDS ORDERED: NITROGLYCERIN 0.3 MG SUBL TAB SL (05:45)
[2017-11-30] MEDS: SODIUM CHLORIDE 0.9% 1000 ML IV (05:50)
[2017-11-30 05:53] LABS: TROPONIN I < 0.02 NG/ML (< 0.10)
[2017-11-30 05:55] LABS: CK-MB VALUE MASS < 1.0 NG/ML (<3.6); CPK CREATINE PHOSPHOKINASE 22 U/L (26-192); MB/CK RELATIVE INDEX 4.54 (< OR =4)
[2017-11-30] MEDS: TIOTROPIUM INHALER/CAPSULE (SPIRIVA) INH (08:01)
[2017-11-30] MEDS: NORCO, ANEXSIA 5/325MG TABLET (HYDROcodone/ACETAMINOPHEN) PO ×2 (08:05→19:41)
[2017-11-30] MEDS: NS 500 ML IV (09:30)
[2017-11-30] MEDS: APIXABAN 5 MG TAB (ELIQUIS) PO ×2 (09:49→20:34)
[2017-11-30] MEDS: DIGOXIN INJ 0.5 MG/2 ML AMP (J1160) IV (09:49)
[2017-11-30] MEDS: VITAMIN D 1,000 INTERNATIONAL UNITS TABLET PO (09:49)
[2017-11-30] MEDS: CALCITRIOL 0.25 MCG CAP (S0169) PO (09:58)
[2017-11-30] MEDS: IPRATROPIUM 0.5MG/ALBUTEROL 2.5MG INH SOL UD 3ML (DUONEB)(J7620) NEB (10:53)
[2017-11-30] MEDS ORDERED: PIPERACILLIN/TAZOBACTAM SOD 2.25 GM in D5W MINI-BAG PLUS 50 ML IV (15:00)
[2017-11-30] MEDS: PIPERACILLIN/TAZOBACTAM SOD 3.375 GM in D5W MINI-BAG PLUS 50 ML IV ×2 (15:23→20:35)
[2017-11-30] MEDS: AMIODARONE HCL 150 MG in APPROPRIATE DILUENT 1 EA IV (16:16)
[2017-11-30] MEDS: VANCOMYCIN HCL 1,000 MG, VIAL MATE ADAPTER 1 EACH in D5W 250 ML IV (16:26)
[2017-11-30] MEDS: VANCOMYCIN HCL 750 MG, VIAL MATE ADAPTER 1 EACH in D5W 250 ML IV (17:36)
[2017-11-30] MEDS: ASPIRIN 81 MG ENTERIC TAB PO (20:35)
[2017-11-30] MEDS: ATORVASTATIN 10 MG TAB PO (20:36)
[2017-12-01] MEDS: PIPERACILLIN/TAZOBACTAM SOD 3.375 GM in D5W MINI-BAG PLUS 50 ML IV ×4 (03:00→20:51)
[2017-12-01 04:18] LABS: BASO # 0.1 10^3/uL (0.0-0.2); BASO % 0.6 % (0.0-1.0); EOS # 0.2 10^3/uL (0.0-0.50); EOS % 2.2 % (0.0-3.0); HEMATOCRIT 34.1 % (36.0-47.0); HEMOGLOBIN 10.8 g/dl (12.0-15.5); IMMATURE GRANULOCYTE % 1.5 % (0-3.0); LYMPH # 0.8 10^3/uL (1.5-4.5); LYMPH % 7.7 % (24.0-44.0); MEAN CORPUSCULAR HEMOGLOBIN 30.2 pg (27.0-33.0); MEAN CORPUSCULAR HGB CONC 31.7 g/dl (32.0-36.5); MEAN CORPUSCULAR VOLUME 95.3 fl (80.0-96.0); MONO % 9.3 % (0.0-5.0); NEUTROPHILS # 8.2 10^3/uL (1.8-7.7); NEUTROPHILS % 78.7 % (36.0-66.0); PLATELET COUNT, AUTOMATED 264 10^3/uL (150-450); RED BLOOD COUNT 3.58 10^6/uL (4.00-5.40); RED CELL DISTRIBUTION WIDTH 13.4 % (11.5-14.5); WHITE BLOOD COUNT 10.4 10^3/uL (4.0-10.0)
[2017-12-01] MEDS: IPRATROPIUM 0.5MG/ALBUTEROL 2.5MG INH SOL UD 3ML (DUONEB)(J7620) NEB (04:19)
[2017-12-01 04:34] LABS: ANION GAP 6 MEQ/L (8-16); BLOOD UREA NITROGEN 36 MG/DL (7-18); CALCIUM LEVEL 8.4 MG/DL (8.8-10.2); CARBON DIOXIDE LEVEL 30 MEQ/L (21-32); CHLORIDE LEVEL 105 MEQ/L (98-107); CREATININE FOR GFR 1.54 MG/DL (0.55-1.30); GLOMERULAR FILTRATION RATE 35.3 (>39); GLUCOSE, FASTING 99 MG/DL (70-100); POTASSIUM SERUM 3.6 MEQ/L (3.5-5.1); SODIUM LEVEL 141 MEQ/L (136-145)
[2017-12-01] MEDS: TIOTROPIUM INHALER/CAPSULE (SPIRIVA) INH (07:50)
[2017-12-01] MEDS: VITAMIN D 1,000 INTERNATIONAL UNITS TABLET PO (09:25)
[2017-12-01] MEDS: APIXABAN 5 MG TAB (ELIQUIS) PO ×2 (09:25→20:50)
[2017-12-01] MEDS: ATENOLOL 25 MG TAB PO (09:25)
[2017-12-01] MEDS: NORCO, ANEXSIA 5/325MG TABLET (HYDROcodone/ACETAMINOPHEN) PO (09:27)
[2017-12-01] MEDS: VANCOMYCIN HCL 1,000 MG, VIAL MATE ADAPTER 1 EACH in D5W 250 ML IV (17:13)
[2017-12-01] MEDS: ATORVASTATIN 10 MG TAB PO (20:51)
[2017-12-01] MEDS: ASPIRIN 81 MG ENTERIC TAB PO (20:51)
[2017-12-02] MEDS: SODIUM CHLORIDE 0.9% 1000 ML IV (01:44)
[2017-12-02] MEDS: NS 1,000 ML IV ×3 (01:44→21:00)
[2017-12-02] MEDS: NORCO, ANEXSIA 5/325MG TABLET (HYDROcodone/ACETAMINOPHEN) PO ×3 (03:08→20:10)
[2017-12-02] MEDS: PIPERACILLIN/TAZOBACTAM SOD 3.375 GM in D5W MINI-BAG PLUS 50 ML IV ×4 (03:08→21:00)
[2017-12-02 04:08] LABS: BASO # 0.1 10^3/uL (0.0-0.2); BASO % 0.7 % (0.0-1.0); EOS # 0.3 10^3/uL (0.0-0.50); HEMATOCRIT 31.7 % (36.0-47.0); HEMOGLOBIN 10.1 g/dl (12.0-15.5); IMMATURE GRANULOCYTE % 2.5 % (0-3.0); LYMPH # 0.8 10^3/uL (1.5-4.5); LYMPH % 10.2 % (24.0-44.0); MEAN CORPUSCULAR HEMOGLOBIN 30.7 pg (27.0-33.0); MEAN CORPUSCULAR HGB CONC 31.9 g/dl (32.0-36.5); MEAN CORPUSCULAR VOLUME 96.4 fl (80.0-96.0); MONO % 12.4 % (0.0-5.0); NEUTROPHILS # 5.7 10^3/uL (1.8-7.7); NEUTROPHILS % 70.2 % (36.0-66.0); PLATELET COUNT, AUTOMATED 235 10^3/uL (150-450); RED BLOOD COUNT 3.29 10^6/uL (4.00-5.40); RED CELL DISTRIBUTION WIDTH 13.3 % (11.5-14.5); WHITE BLOOD COUNT 8.1 10^3/uL (4.0-10.0)
[2017-12-02 04:18] LABS: ANION GAP 5 MEQ/L (8-16); BLOOD UREA NITROGEN 32 MG/DL (7-18); CALCIUM LEVEL 8.1 MG/DL (8.8-10.2); CARBON DIOXIDE LEVEL 29 MEQ/L (21-32); CHLORIDE LEVEL 108 MEQ/L (98-107); CREATININE FOR GFR 1.63 MG/DL (0.55-1.30); GLUCOSE, FASTING 98 MG/DL (70-100); MAGNESIUM LEVEL 2.1 MG/DL (1.8-2.4); POTASSIUM SERUM 3.4 MEQ/L (3.5-5.1); SODIUM LEVEL 142 MEQ/L (136-145)
[2017-12-02] MEDS: TIOTROPIUM INHALER/CAPSULE (SPIRIVA) INH (08:14)
[2017-12-02] MEDS: APIXABAN 5 MG TAB (ELIQUIS) PO ×2 (08:36→20:09)
[2017-12-02] MEDS: ATENOLOL 25 MG TAB PO (08:37)
[2017-12-02] MEDS: VITAMIN D 1,000 INTERNATIONAL UNITS TABLET PO (08:37)
[2017-12-02] MEDS: POTASSIUM CHLORIDE 10 MEQ SR TABLET PO (10:00)
[2017-12-02] MEDS: IPRATROPIUM 0.5MG/ALBUTEROL 2.5MG INH SOL UD 3ML (DUONEB)(J7620) NEB ×2 (10:10→22:52)
[2017-12-02] MEDS ORDERED: guaiFENesin SYRUP 200 MG/10 ML UDC PO (10:15)
[2017-12-02] MEDS: KCL 10MEQ/100ML SWI (KRUN) 10 MEQ in APPROPRIATE DILUENT 1 EA IV ×2 (10:51→13:00)
[2017-12-02] MEDS ORDERED: SENNA 8.6 MG TAB (SENOKOT) PO (11:00)
[2017-12-02 15:39] LABS: VANCOMYCIN LEVEL TROUGH 17.1 UG/ML (10.0-20.0)
[2017-12-02] MEDS: VANCOMYCIN HCL 1,000 MG, VIAL MATE ADAPTER 1 EACH in D5W 250 ML IV (17:18)
[2017-12-02] MEDS ORDERED: PILL CRUSHER/CUTTER 1 EACH XX (20:00)
[2017-12-02] MEDS: ATORVASTATIN 10 MG TAB PO (20:10)
[2017-12-02] MEDS: ASPIRIN 81 MG ENTERIC TAB PO (20:11)
[2017-12-03] MEDS: NORCO, ANEXSIA 5/325MG TABLET (HYDROcodone/ACETAMINOPHEN) PO ×4 (03:21→21:57)
[2017-12-03] MEDS: PIPERACILLIN/TAZOBACTAM SOD 3.375 GM in D5W MINI-BAG PLUS 50 ML IV ×4 (03:22→21:05)
[2017-12-03 05:16] LABS: BASO # 0.1 10^3/uL (0.0-0.2); BASO % 0.9 % (0.0-1.0); EOS # 0.3 10^3/uL (0.0-0.50); EOS % 3.7 % (0.0-3.0); HEMATOCRIT 30.9 % (36.0-47.0); HEMOGLOBIN 9.7 g/dl (12.0-15.5); IMMATURE GRANULOCYTE % 2.7 % (0-3.0); LYMPH % 12.1 % (24.0-44.0); MEAN CORPUSCULAR HGB CONC 31.4 g/dl (32.0-36.5); MEAN CORPUSCULAR VOLUME 95.7 fl (80.0-96.0); MONO # 1.1 10^3/uL (0.0-0.8); MONO % 13.2 % (0.0-5.0); NEUTROPHILS # 5.5 10^3/uL (1.8-7.7); NEUTROPHILS % 67.4 % (36.0-66.0); PLATELET COUNT, AUTOMATED 259 10^3/uL (150-450); RED BLOOD COUNT 3.23 10^6/uL (4.00-5.40); RED CELL DISTRIBUTION WIDTH 13.3 % (11.5-14.5); WHITE BLOOD COUNT 8.1 10^3/uL (4.0-10.0)
[2017-12-03 05:26] LABS: ANION GAP 8 MEQ/L (8-16); BLOOD UREA NITROGEN 22 MG/DL (7-18); CALCIUM LEVEL 7.9 MG/DL (8.8-10.2); CARBON DIOXIDE LEVEL 27 MEQ/L (21-32); CHLORIDE LEVEL 110 MEQ/L (98-107); CREATININE FOR GFR 1.31 MG/DL (0.55-1.30); GLOMERULAR FILTRATION RATE 42.5 (>39); GLUCOSE, FASTING 85 MG/DL (70-100); MAGNESIUM LEVEL 2.1 MG/DL (1.8-2.4); POTASSIUM SERUM 3.5 MEQ/L (3.5-5.1); SODIUM LEVEL 145 MEQ/L (136-145)
[2017-12-03] MEDS: APIXABAN 5 MG TAB (ELIQUIS) PO (07:22)
[2017-12-03] MEDS: IPRATROPIUM 0.5MG/ALBUTEROL 2.5MG INH SOL UD 3ML (DUONEB)(J7620) NEB ×2 (07:46→22:40)
[2017-12-03] MEDS: TIOTROPIUM INHALER/CAPSULE (SPIRIVA) INH (07:46)
[2017-12-03] MEDS: VITAMIN D 1,000 INTERNATIONAL UNITS TABLET PO (08:56)
[2017-12-03] MEDS: CALCITRIOL 0.25 MCG CAP (S0169) PO (08:56)
[2017-12-03] MEDS: ATENOLOL 25 MG TAB PO ×2 (08:56→21:05)
[2017-12-03] MEDS: NS 1,000 ML IV (08:57)
[2017-12-03] MEDS: METOPROLOL 5 MG/5 ML VIAL IV ×3 (12:20→12:58)
[2017-12-03] MEDS: KCL 20MEQ IN 0.45NS 1000ML 1,000 ML IV (15:06)
[2017-12-03] MEDS: VANCOMYCIN HCL 1,000 MG, VIAL MATE ADAPTER 1 EACH in D5W 250 ML IV (16:32)
[2017-12-03] MEDS: ATORVASTATIN 10 MG TAB PO (21:05)
[2017-12-04] MEDS: PIPERACILLIN/TAZOBACTAM SOD 3.375 GM in D5W MINI-BAG PLUS 50 ML IV ×4 (03:13→20:14)
[2017-12-04 05:33] LABS: BASO # 0.1 10^3/uL (0.0-0.2); EOS # 0.3 10^3/uL (0.0-0.50); EOS % 4.2 % (0.0-3.0); HEMATOCRIT 31.9 % (36.0-47.0); HEMOGLOBIN 9.9 g/dl (12.0-15.5); IMMATURE GRANULOCYTE % 3.3 % (0-3.0); LYMPH # 1.1 10^3/uL (1.5-4.5); LYMPH % 13.5 % (24.0-44.0); MEAN CORPUSCULAR HEMOGLOBIN 29.8 pg (27.0-33.0); MEAN CORPUSCULAR VOLUME 96.1 fl (80.0-96.0); MONO # 1.1 10^3/uL (0.0-0.8); MONO % 12.9 % (0.0-5.0); NEUTROPHILS # 5.3 10^3/uL (1.8-7.7); NEUTROPHILS % 65.1 % (36.0-66.0); PLATELET COUNT, AUTOMATED 270 10^3/uL (150-450); RED BLOOD COUNT 3.32 10^6/uL (4.00-5.40); RED CELL DISTRIBUTION WIDTH 13.5 % (11.5-14.5); WHITE BLOOD COUNT 8.2 10^3/uL (4.0-10.0)
[2017-12-04 05:45] LABS: PROTHROMBIN TIME 19.5 SECONDS (12.4-14.5)
[2017-12-04 05:50] LABS: ANION GAP 6 MEQ/L (8-16); BLOOD UREA NITROGEN 15 MG/DL (7-18); CALCIUM LEVEL 8.1 MG/DL (8.8-10.2); CARBON DIOXIDE LEVEL 26 MEQ/L (21-32); CHLORIDE LEVEL 113 MEQ/L (98-107); CREATININE FOR GFR 1.15 MG/DL (0.55-1.30); GLOMERULAR FILTRATION RATE 49.4 (>39); GLUCOSE, FASTING 86 MG/DL (70-100); MAGNESIUM LEVEL 2.3 MG/DL (1.8-2.4); POTASSIUM SERUM 3.9 MEQ/L (3.5-5.1); SODIUM LEVEL 145 MEQ/L (136-145)
[2017-12-04] MEDS: KCL 20MEQ IN 0.45NS 1000ML 1,000 ML IV ×2 (06:29→15:03)
[2017-12-04] MEDS: NORCO, ANEXSIA 5/325MG TABLET (HYDROcodone/ACETAMINOPHEN) PO ×4 (06:36→19:44)
[2017-12-04] MEDS: CALCITRIOL 0.25 MCG CAP (S0169) PO (08:32)
[2017-12-04] MEDS: VITAMIN D 1,000 INTERNATIONAL UNITS TABLET PO (08:32)
[2017-12-04] MEDS: ATENOLOL 25 MG TAB PO ×2 (08:32→20:13)
[2017-12-04] MEDS: TIOTROPIUM INHALER/CAPSULE (SPIRIVA) INH (11:12)
[2017-12-04] MEDS: VANCOMYCIN HCL 1,000 MG, VIAL MATE ADAPTER 1 EACH in D5W 250 ML IV (16:57)
[2017-12-04] MEDS: ATORVASTATIN 10 MG TAB PO (20:13)
[2017-12-04] MEDS: IPRATROPIUM 0.5MG/ALBUTEROL 2.5MG INH SOL UD 3ML (DUONEB)(J7620) NEB (22:21)
[2017-12-04] MEDS: LOPERAMIDE 2 MG CAP PO (23:23)
[2017-12-04] MEDS: amLODIPine 5 MG TAB PO (23:23)
[2017-12-05] MEDS: PIPERACILLIN/TAZOBACTAM SOD 3.375 GM in D5W MINI-BAG PLUS 50 ML IV ×4 (02:10→20:42)
[2017-12-05] MEDS: KCL 20MEQ IN 0.45NS 1000ML 1,000 ML IV ×3 (06:08→15:25)
[2017-12-05] MEDS ORDERED: LIDOCAINE 2% INJ 100 MG/5 ML SDV (FOR ANES.) As Ordered ×2 (06:59→07:01)
[2017-12-05] MEDS ORDERED: PROPOFOL 200 MG/20 ML VIAL As Ordered ×2 (07:00→07:01)
[2017-12-05 07:25] LABS: BASO # 0.1 10^3/uL (0.0-0.2); BASO % 0.9 % (0.0-1.0); EOS # 0.3 10^3/uL (0.0-0.50); EOS % 3.1 % (0.0-3.0); HEMATOCRIT 33.7 % (36.0-47.0); HEMOGLOBIN 10.7 g/dl (12.0-15.5); IMMATURE GRANULOCYTE % 3.3 % (0-3.0); LYMPH # 0.8 10^3/uL (1.5-4.5); LYMPH % 8.7 % (24.0-44.0); MEAN CORPUSCULAR HEMOGLOBIN 30.2 pg (27.0-33.0); MEAN CORPUSCULAR HGB CONC 31.8 g/dl (32.0-36.5); MEAN CORPUSCULAR VOLUME 95.2 fl (80.0-96.0); MONO % 10.1 % (0.0-5.0); NEUTROPHILS # 7.1 10^3/uL (1.8-7.7); NEUTROPHILS % 73.9 % (36.0-66.0); PLATELET COUNT, AUTOMATED 290 10^3/uL (150-450); RED BLOOD COUNT 3.54 10^6/uL (4.00-5.40); RED CELL DISTRIBUTION WIDTH 13.2 % (11.5-14.5); WHITE BLOOD COUNT 9.6 10^3/uL (4.0-10.0)
[2017-12-05 07:46] LABS: ANION GAP 6 MEQ/L (8-16); BLOOD UREA NITROGEN 12 MG/DL (7-18); CALCIUM LEVEL 8.5 MG/DL (8.8-10.2); CARBON DIOXIDE LEVEL 25 MEQ/L (21-32); CHLORIDE LEVEL 112 MEQ/L (98-107); GLUCOSE, FASTING 71 MG/DL (70-100); MAGNESIUM LEVEL 2.2 MG/DL (1.8-2.4); POTASSIUM SERUM 4.3 MEQ/L (3.5-5.1); SODIUM LEVEL 143 MEQ/L (136-145)
[2017-12-05] MEDS ORDERED: ONDANSETRON 4MG/2ML VIAL (J2405) IV (09:45)
[2017-12-05] MEDS: LR 1,000 ML IV (09:45)
[2017-12-05] MEDS ORDERED: fentaNYL 100 MCG/2 ML INJECTION (J3010) IV (09:45)
[2017-12-05] MEDS: TIOTROPIUM INHALER/CAPSULE (SPIRIVA) INH (10:00)
[2017-12-05] MEDS: CALCITRIOL 0.25 MCG CAP (S0169) PO (11:14)
[2017-12-05] MEDS: VITAMIN D 1,000 INTERNATIONAL UNITS TABLET PO (11:14)
[2017-12-05] MEDS: ATENOLOL 25 MG TAB PO ×2 (11:14→20:42)
[2017-12-05] MEDS ORDERED: LIDOCAINE 1% MDV 20ML VIAL As Ordered (11:23)
[2017-12-05] MEDS ORDERED: fentaNYL 100 MCG/2 ML INJECTION (J3010) As Ordered (13:03)
[2017-12-05] MEDS: LOPERAMIDE 2 MG CAP PO (15:25)
[2017-12-05] MEDS: NORCO, ANEXSIA 5/325MG TABLET (HYDROcodone/ACETAMINOPHEN) PO (15:44)
[2017-12-05 16:26] LABS: VANCOMYCIN LEVEL TROUGH 20.5 UG/ML (10.0-20.0)
[2017-12-05] MEDS: VANCOMYCIN HCL 750 MG, VIAL MATE ADAPTER 1 EACH in D5W 250 ML IV (17:48)
[2017-12-05] MEDS: ATORVASTATIN 10 MG TAB PO (20:42)
[2017-12-06] MEDS: PIPERACILLIN/TAZOBACTAM SOD 3.375 GM in D5W MINI-BAG PLUS 50 ML IV ×2 (03:10→08:30)
[2017-12-06] MEDS: LOPERAMIDE 2 MG CAP PO ×3 (03:10→16:19)
[2017-12-06 06:12] LABS: BASO # 0.1 10^3/uL (0.0-0.2); BASO % 0.9 % (0.0-1.0); EOS # 0.3 10^3/uL (0.0-0.50); EOS % 2.7 % (0.0-3.0); HEMOGLOBIN 10.3 g/dl (12.0-15.5); IMMATURE GRANULOCYTE % 3.7 % (0-3.0); LYMPH % 9.1 % (24.0-44.0); MEAN CORPUSCULAR HGB CONC 32.2 g/dl (32.0-36.5); MEAN CORPUSCULAR VOLUME 93.3 fl (80.0-96.0); MONO # 0.8 10^3/uL (0.0-0.8); MONO % 7.6 % (0.0-5.0); NEUTROPHILS # 8.3 10^3/uL (1.8-7.7); PLATELET COUNT, AUTOMATED 315 10^3/uL (150-450); RED BLOOD COUNT 3.43 10^6/uL (4.00-5.40); RED CELL DISTRIBUTION WIDTH 13.1 % (11.5-14.5); WHITE BLOOD COUNT 10.9 10^3/uL (4.0-10.0)
[2017-12-06] MEDS: KCL 20MEQ IN 0.45NS 1000ML 1,000 ML IV ×3 (06:32→21:14)
[2017-12-06] MEDS: ATENOLOL 25 MG TAB PO ×2 (07:59→21:24)
[2017-12-06] MEDS: VITAMIN D 1,000 INTERNATIONAL UNITS TABLET PO ×2 (08:00→08:43)
[2017-12-06] MEDS: CALCITRIOL 0.25 MCG CAP (S0169) PO ×2 (08:00→08:43)
[2017-12-06] MEDS: amLODIPine 5 MG TAB PO (08:00)
[2017-12-06] MEDS: TIOTROPIUM INHALER/CAPSULE (SPIRIVA) INH (08:05)
[2017-12-06] MEDS: NORCO, ANEXSIA 5/325MG TABLET (HYDROcodone/ACETAMINOPHEN) PO ×2 (08:31→21:13)
[2017-12-06] MEDS: CEFUROXIME 500 MG TAB PO ×2 (13:11→21:00)
[2017-12-06] MEDS: APIXABAN 5 MG TAB (ELIQUIS) PO ×2 (15:01→21:13)
[2017-12-06] MEDS: ATORVASTATIN 10 MG TAB PO (21:00)
[2017-12-06] MEDS: IPRATROPIUM 0.5MG/ALBUTEROL 2.5MG INH SOL UD 3ML (DUONEB)(J7620) NEB (21:42)
[2017-12-07] MEDS: LOPERAMIDE 2 MG CAP PO ×2 (05:06→10:01)
[2017-12-07] MEDS: IPRATROPIUM 0.5MG/ALBUTEROL 2.5MG INH SOL UD 3ML (DUONEB)(J7620) NEB ×3 (07:13→13:08)
[2017-12-07] MEDS: TIOTROPIUM INHALER/CAPSULE (SPIRIVA) INH (07:15)
[2017-12-07 08:27] LABS: HEMOGLOBIN 9.7 g/dl (12.0-15.5); MEAN CORPUSCULAR HEMOGLOBIN 29.8 pg (27.0-33.0); MEAN CORPUSCULAR HGB CONC 32.3 g/dl (32.0-36.5); MEAN CORPUSCULAR VOLUME 92.3 fl (80.0-96.0); PLATELET COUNT, AUTOMATED 300 10^3/uL (150-450); RED BLOOD COUNT 3.25 10^6/uL (4.00-5.40); RED CELL DISTRIBUTION WIDTH 13.3 % (11.5-14.5); WHITE BLOOD COUNT 10.8 10^3/uL (4.0-10.0)
[2017-12-07] MEDS: CEFUROXIME 500 MG TAB PO ×2 (09:00→22:00)
[2017-12-07] MEDS: VITAMIN D 1,000 INTERNATIONAL UNITS TABLET PO (09:00)
[2017-12-07] MEDS: CALCITRIOL 0.25 MCG CAP (S0169) PO (09:00)
[2017-12-07 09:24] LABS: ALBUMIN 2.4 GM/DL (3.2-5.2); ALBUMIN/GLOBULIN RATIO 0.86 (1.00-1.93); ALKALINE PHOSPHATASE 57 U/L (45-117); ALT/SGPT 13 U/L (12-78); ANION GAP 8 MEQ/L (8-16); AST/SGOT 12 U/L (7-37); BILIRUBIN,TOTAL 0.3 MG/DL (0.2-1.0); BLOOD UREA NITROGEN 12 MG/DL (7-18); CALCIUM LEVEL 8.3 MG/DL (8.8-10.2); CARBON DIOXIDE LEVEL 24 MEQ/L (21-32); CHLORIDE LEVEL 109 MEQ/L (98-107); GLOMERULAR FILTRATION RATE > 60.0 (>39); GLUCOSE, FASTING 132 MG/DL (70-100); POTASSIUM SERUM 4.4 MEQ/L (3.5-5.1); SODIUM LEVEL 141 MEQ/L (136-145); TOTAL PROTEIN 5.2 GM/DL (6.4-8.2)
[2017-12-07] MEDS: guaiFENesin SYRUP 200 MG/10 ML UDC PO ×2 (10:00→21:58)
[2017-12-07] MEDS: amLODIPine 5 MG TAB PO (10:01)
[2017-12-07] MEDS: ATENOLOL 25 MG TAB PO ×2 (10:01→22:00)
[2017-12-07] MEDS: APIXABAN 5 MG TAB (ELIQUIS) PO ×2 (10:01→21:59)
[2017-12-07] MEDS: NORCO, ANEXSIA 5/325MG TABLET (HYDROcodone/ACETAMINOPHEN) PO (13:24)
[2017-12-07] MEDS: CIPROFLOXACIN 500 MG TAB PO (18:30)
[2017-12-07] MEDS: ATORVASTATIN 10 MG TAB PO (22:00)
[2017-12-08] MEDS: LOPERAMIDE 2 MG CAP PO ×2 (01:39→09:24)
[2017-12-08] MEDS: NORCO, ANEXSIA 5/325MG TABLET (HYDROcodone/ACETAMINOPHEN) PO ×2 (01:40→20:29)
[2017-12-08] MEDS: CIPROFLOXACIN 500 MG TAB PO ×2 (06:14→17:58)
[2017-12-08 06:50] LABS: HEMATOCRIT 30.2 % (36.0-47.0); HEMOGLOBIN 9.6 g/dl (12.0-15.5); MEAN CORPUSCULAR HEMOGLOBIN 29.7 pg (27.0-33.0); MEAN CORPUSCULAR HGB CONC 31.8 g/dl (32.0-36.5); MEAN CORPUSCULAR VOLUME 93.5 fl (80.0-96.0); PLATELET COUNT, AUTOMATED 274 10^3/uL (150-450); RED BLOOD COUNT 3.23 10^6/uL (4.00-5.40); RED CELL DISTRIBUTION WIDTH 13.7 % (11.5-14.5); WHITE BLOOD COUNT 9.2 10^3/uL (4.0-10.0)
[2017-12-08 07:10] LABS: ANION GAP 5 MEQ/L (8-16); BLOOD UREA NITROGEN 11 MG/DL (7-18); CALCIUM LEVEL 8.4 MG/DL (8.8-10.2); CARBON DIOXIDE LEVEL 27 MEQ/L (21-32); CHLORIDE LEVEL 111 MEQ/L (98-107); CREATININE FOR GFR 0.97 MG/DL (0.55-1.30); GLOMERULAR FILTRATION RATE > 60.0 (>39); GLUCOSE, FASTING 92 MG/DL (70-100); POTASSIUM SERUM 4.4 MEQ/L (3.5-5.1); SODIUM LEVEL 143 MEQ/L (136-145)
[2017-12-08] MEDS: IPRATROPIUM 0.5MG/ALBUTEROL 2.5MG INH SOL UD 3ML (DUONEB)(J7620) NEB (07:58)
[2017-12-08] MEDS: TIOTROPIUM INHALER/CAPSULE (SPIRIVA) INH (07:58)
[2017-12-08] MEDS: CEFUROXIME 500 MG TAB PO ×2 (09:00→20:31)
[2017-12-08] MEDS: VITAMIN D 1,000 INTERNATIONAL UNITS TABLET PO (09:00)
[2017-12-08] MEDS: amLODIPine 5 MG TAB PO (09:00)
[2017-12-08] MEDS: APIXABAN 5 MG TAB (ELIQUIS) PO ×2 (09:10→20:31)
[2017-12-08] MEDS: guaiFENesin SYRUP 200 MG/10 ML UDC PO ×2 (09:10→20:32)
[2017-12-08] MEDS: ATENOLOL 25 MG TAB PO ×2 (09:10→20:30)
[2017-12-08] MEDS: ATORVASTATIN 10 MG TAB PO (20:32)
[2017-12-09] MEDS: CIPROFLOXACIN 500 MG TAB PO ×2 (06:00→18:00)
[2017-12-09] MEDS: TIOTROPIUM INHALER/CAPSULE (SPIRIVA) INH (07:54)
[2017-12-09] MEDS: IPRATROPIUM 0.5MG/ALBUTEROL 2.5MG INH SOL UD 3ML (DUONEB)(J7620) NEB (07:55)
[2017-12-09] MEDS: APIXABAN 5 MG TAB (ELIQUIS) PO ×2 (08:10→21:51)
[2017-12-09] MEDS: CEFUROXIME 500 MG TAB PO ×2 (08:10→21:00)
[2017-12-09] MEDS: amLODIPine 5 MG TAB PO (08:11)
[2017-12-09] MEDS: ATENOLOL 25 MG TAB PO ×2 (08:11→21:00)
[2017-12-09] MEDS: VITAMIN D 1,000 INTERNATIONAL UNITS TABLET PO (08:12)
[2017-12-09] MEDS: guaiFENesin SYRUP 200 MG/10 ML UDC PO ×2 (08:12→21:52)
[2017-12-09] MEDS: NORCO, ANEXSIA 5/325MG TABLET (HYDROcodone/ACETAMINOPHEN) PO ×2 (11:08→21:51)
[2017-12-09 11:37] LABS: HEMATOCRIT 31.7 % (36.0-47.0); HEMOGLOBIN 10.1 g/dl (12.0-15.5); MEAN CORPUSCULAR HEMOGLOBIN 30.1 pg (27.0-33.0); MEAN CORPUSCULAR HGB CONC 31.9 g/dl (32.0-36.5); MEAN CORPUSCULAR VOLUME 94.6 fl (80.0-96.0); PLATELET COUNT, AUTOMATED 280 10^3/uL (150-450); RED BLOOD COUNT 3.35 10^6/uL (4.00-5.40)
[2017-12-09 12:12] LABS: ANION GAP 4 MEQ/L (8-16); BLOOD UREA NITROGEN 15 MG/DL (7-18); CALCIUM LEVEL 8.7 MG/DL (8.8-10.2); CARBON DIOXIDE LEVEL 31 MEQ/L (21-32); CHLORIDE LEVEL 108 MEQ/L (98-107); CREATININE FOR GFR 1.06 MG/DL (0.55-1.30); GLOMERULAR FILTRATION RATE 54.2 (>39); GLUCOSE, FASTING 100 MG/DL (70-100); POTASSIUM SERUM 4.4 MEQ/L (3.5-5.1); SODIUM LEVEL 143 MEQ/L (136-145)
[2017-12-09] MEDS: ATORVASTATIN 10 MG TAB PO (21:51)
[2017-12-09] MEDS: LOPERAMIDE 2 MG CAP PO (21:55)
[2017-12-10] MEDS: IPRATROPIUM 0.5MG/ALBUTEROL 2.5MG INH SOL UD 3ML (DUONEB)(J7620) NEB ×4 (02:08→21:10)
[2017-12-10] MEDS: CIPROFLOXACIN 500 MG TAB PO (05:22)
[2017-12-10 06:32] LABS: HEMATOCRIT 30.2 % (36.0-47.0); HEMOGLOBIN 9.6 g/dl (12.0-15.5); MEAN CORPUSCULAR HGB CONC 31.8 g/dl (32.0-36.5); MEAN CORPUSCULAR VOLUME 94.4 fl (80.0-96.0); PLATELET COUNT, AUTOMATED 275 10^3/uL (150-450); RED CELL DISTRIBUTION WIDTH 13.9 % (11.5-14.5); WHITE BLOOD COUNT 9.6 10^3/uL (4.0-10.0)
[2017-12-10 06:55] LABS: ANION GAP 3 MEQ/L (8-16); BLOOD UREA NITROGEN 16 MG/DL (7-18); CALCIUM LEVEL 8.7 MG/DL (8.8-10.2); CARBON DIOXIDE LEVEL 29 MEQ/L (21-32); CHLORIDE LEVEL 109 MEQ/L (98-107); CREATININE FOR GFR 1.12 MG/DL (0.55-1.30); GLOMERULAR FILTRATION RATE 50.9 (>39); GLUCOSE, FASTING 101 MG/DL (70-100); POTASSIUM SERUM 4.3 MEQ/L (3.5-5.1); SODIUM LEVEL 141 MEQ/L (136-145)
[2017-12-10] MEDS: TIOTROPIUM INHALER/CAPSULE (SPIRIVA) INH (07:40)
[2017-12-10] MEDS: CALCITRIOL 0.25 MCG CAP (S0169) PO (09:00)
[2017-12-10] MEDS: amLODIPine 5 MG TAB PO (09:00)
[2017-12-10] MEDS: VITAMIN D 1,000 INTERNATIONAL UNITS TABLET PO (09:00)
[2017-12-10] MEDS: APIXABAN 5 MG TAB (ELIQUIS) PO ×2 (09:21→22:02)
[2017-12-10] MEDS: guaiFENesin SYRUP 200 MG/10 ML UDC PO ×2 (09:21→22:01)
[2017-12-10] MEDS: ATENOLOL 25 MG TAB PO ×2 (09:22→21:00)
[2017-12-10] MEDS: NORCO, ANEXSIA 5/325MG TABLET (HYDROcodone/ACETAMINOPHEN) PO ×2 (09:22→22:05)
[2017-12-10] MEDS: LOPERAMIDE 2 MG CAP PO (09:31)
[2017-12-10] MEDS: CIPROFLOXACIN 500 MG TAB PEG ×2 (12:56→17:09)
[2017-12-10] MEDS: ATORVASTATIN 10 MG TAB PO (21:00)
[2017-12-11] MEDS: CIPROFLOXACIN 500 MG TAB PEG ×2 (06:43→18:25)
[2017-12-11] MEDS: IPRATROPIUM 0.5MG/ALBUTEROL 2.5MG INH SOL UD 3ML (DUONEB)(J7620) NEB ×2 (07:39→17:46)
[2017-12-11] MEDS: TIOTROPIUM INHALER/CAPSULE (SPIRIVA) INH (07:39)
[2017-12-11] MEDS: BACITRACIN OINT 30GM TOP ×2 (09:00→21:55)
[2017-12-11] MEDS: NORCO, ANEXSIA 5/325MG TABLET (HYDROcodone/ACETAMINOPHEN) PO ×2 (09:54→21:52)
[2017-12-11] MEDS: guaiFENesin SYRUP 200 MG/10 ML UDC PO ×2 (09:55→21:48)
[2017-12-11] MEDS: CALCITRIOL 0.25 MCG CAP (S0169) PO (09:56)
[2017-12-11] MEDS: LACTOBACILLUS ACIDOPHILUS CAP (BACID) PO ×2 (09:56→21:50)
[2017-12-11] MEDS: APIXABAN 5 MG TAB (ELIQUIS) PO ×2 (09:57→21:53)
[2017-12-11] MEDS: VITAMIN D 1,000 INTERNATIONAL UNITS TABLET PO (09:57)
[2017-12-11] MEDS: ATENOLOL 25 MG TAB PO ×2 (09:57→21:00)
[2017-12-11] MEDS: ATORVASTATIN 10 MG TAB PO (21:53)
[2017-12-12] MEDS: IPRATROPIUM 0.5MG/ALBUTEROL 2.5MG INH SOL UD 3ML (DUONEB)(J7620) NEB (03:35)
[2017-12-12] MEDS: CIPROFLOXACIN 500 MG TAB PEG (06:01)
[2017-12-12] MEDS: TIOTROPIUM INHALER/CAPSULE (SPIRIVA) INH (07:38)
[2017-12-12] MEDS: guaiFENesin SYRUP 200 MG/10 ML UDC PO (08:58)
[2017-12-12] MEDS: ATENOLOL 25 MG TAB PO (08:59)
[2017-12-12] MEDS: VITAMIN D 1,000 INTERNATIONAL UNITS TABLET PO (08:59)
[2017-12-12] MEDS: LACTOBACILLUS ACIDOPHILUS CAP (BACID) PO (08:59)
[2017-12-12] MEDS: APIXABAN 5 MG TAB (ELIQUIS) PO (09:00)
[2017-12-12] MEDS: CALCITRIOL 0.25 MCG CAP (S0169) PO (09:00)
[2017-12-12] MEDS: BACITRACIN OINT 30GM TOP (09:01)
[2017-12-12] MEDS: NORCO, ANEXSIA 5/325MG TABLET (HYDROcodone/ACETAMINOPHEN) PO (09:11)
== END 2017-12-12 15:55 | disposition home health service (06) | DRG 11 ==
LOC: M SDC 10:19 → M PCU 12-03 02:45 → M ICU 16:15 → M SDC 11-30 13:53 → M ICU 11-30 13:54 → M MS5PR 12-06 19:53
PROC: 0B110F4 Bypass Trachea to Cutaneous with Tracheostomy Device, Open Approach (ICD-10-PCS; principal; 2017-11-28 13:04)
PROC: 0CBS0ZX Excision of Larynx, Open Approach, Diagnostic (ICD-10-PCS; 2017-11-28 13:04)
PROC: 0CBR0ZX Excision of Epiglottis, Open Approach, Diagnostic (ICD-10-PCS; 2017-11-28 13:04)
PROC: 0BBC3ZX Excision of Right Upper Lung Lobe, Percutaneous Approach, Diagnostic (ICD-10-PCS; 2017-11-28 13:04)
PROC: 0DH68UZ Insertion of Feeding Device into Stomach, Via Natural or Artificial Opening Endoscopic (ICD-10-PCS; 2017-11-28 13:04)
DX: C32.1 Malignant neoplasm of supraglottis (principal); J18.9 Pneumonia, unspecified organism; C34.11 Malignant neoplasm of upper lobe, right bronchus or lung; E46 Unspecified protein-calorie malnutrition; I25.10 Atherosclerotic heart disease of native coronary artery without angina pectoris; I12.9 Hypertensive chronic kidney disease with stage 1 through stage 4 chronic kidney disease, or unspecified chronic kidney disease; E78.5 Hyperlipidemia, unspecified; M85.80 Other specified disorders of bone density and structure, unspecified site; I87.2 Venous insufficiency (chronic) (peripheral); E55.9 Vitamin D deficiency, unspecified; I48.2 Chronic atrial fibrillation; J44.9 Chronic obstructive pulmonary disease, unspecified; N18.3 Chronic kidney disease, stage 3 (moderate); D64.9 Anemia, unspecified; I73.9 Peripheral vascular disease, unspecified; Z95.0 Presence of cardiac pacemaker; Z95.5 Presence of coronary angioplasty implant and graft; Z88.1 Allergy status to other antibiotic agents; Z88.8 Allergy status to other drugs, medicaments and biological substances; Z98.41 Cataract extraction status, right eye; Z98.42 Cataract extraction status, left eye; R19.7 Diarrhea, unspecified; R13.10 Dysphagia, unspecified; Y95 Nosocomial condition; T36.95XA Adverse effect of unspecified systemic antibiotic, initial encounter; Z87.891 Personal history of nicotine dependence; Z79.899 Other long term (current) drug therapy; Z79.01 Long term (current) use of anticoagulants; Z79.82 Long term (current) use of aspirin

== ENCOUNTER → 2017-12-18 | Outpatient (CLI) | payer MEDICARE, BC, OTHER | LOC: M PLARAD 15:01 | DX: C32.1 Malignant neoplasm of supraglottis (principal) | CPT/HCPCS: 78815 ==

== ENCOUNTER 2017-12-25 10:35 | Inpatient (IN) | payer MEDICARE, BC, OTHER ==
[2017-12-25] MEDS: NS 1,000 ML IV (13:19)
[2017-12-25 13:32] LABS: BASO # 0.1 10^3/uL (0.0-0.2); BASO % 0.5 % (0.0-1.0); EOS # 0.1 10^3/uL (0.0-0.50); EOS % 0.5 % (0.0-3.0); HEMATOCRIT 31.6 % (36.0-47.0); HEMOGLOBIN 10.2 g/dl (12.0-15.5); IMMATURE GRANULOCYTE % 2.5 % (0-3.0); LYMPH # 0.7 10^3/uL (1.5-4.5); LYMPH % 4.2 % (24.0-44.0); MEAN CORPUSCULAR HEMOGLOBIN 29.7 pg (27.0-33.0); MEAN CORPUSCULAR HGB CONC 32.3 g/dl (32.0-36.5); MEAN CORPUSCULAR VOLUME 92.1 fl (80.0-96.0); MONO # 1.2 10^3/uL (0.0-0.8); MONO % 7.5 % (0.0-5.0); NEUTROPHILS # 13.2 10^3/uL (1.8-7.7); NEUTROPHILS % 84.8 % (36.0-66.0); PLATELET COUNT, AUTOMATED 401 10^3/uL (150-450); RED BLOOD COUNT 3.43 10^6/uL (4.00-5.40); RED CELL DISTRIBUTION WIDTH 13.7 % (11.5-14.5); WHITE BLOOD COUNT 15.6 10^3/uL (4.0-10.0)
[2017-12-25 13:45] LABS: INR 1.92; PROTHROMBIN TIME 22.6 SECONDS (12.4-14.5)
[2017-12-25] MEDS: MORPHINE 2 MG/ML 1ML SYRINGE (J2270) IV (13:46)
[2017-12-25 13:58] LABS: ALKALINE PHOSPHATASE 82 U/L (45-117); ALT/SGPT 32 U/L (12-78); ANION GAP 6 MEQ/L (8-16); AST/SGOT 21 U/L (7-37); BILIRUBIN,DIRECT < 0.1 MG/DL (0.0-0.2); BILIRUBIN,TOTAL 0.4 MG/DL (0.2-1.0); BLOOD UREA NITROGEN 33 MG/DL (7-18); CALCIUM LEVEL 8.9 MG/DL (8.8-10.2); CARBON DIOXIDE LEVEL 30 MEQ/L (21-32); CHLORIDE LEVEL 100 MEQ/L (98-107); CK-MB VALUE MASS < 1.0 NG/ML (<3.6); CPK CREATINE PHOSPHOKINASE 18 U/L (26-192); CREATININE FOR GFR 1.39 MG/DL (0.55-1.30); GLOMERULAR FILTRATION RATE 39.7 (>39); GLUCOSE, FASTING 86 MG/DL (70-100); MB/CK RELATIVE INDEX 5.55 (< OR =4); POTASSIUM SERUM 4.7 MEQ/L (3.5-5.1); SODIUM LEVEL 136 MEQ/L (136-145); TOTAL PROTEIN 7.3 GM/DL (6.4-8.2); TROPONIN I < 0.02 NG/ML (< 0.10); URIC ACID 7.4 MG/DL (2.6-6.0)
[2017-12-25] MEDS ORDERED: ISOVUE-370 76% 100ML VIAL (Q9967) As Ordered (14:04)
[2017-12-25] MEDS: NS 1,200 ML IV (18:55)
[2017-12-25] MEDS: PERCOCET 5MG/325MG TAB GT (19:51)
[2017-12-25] MEDS ORDERED: SLF 3 ML SYR IV (20:30)
[2017-12-25] MEDS: IPRATROPIUM 0.5MG/ALBUTEROL 2.5MG INH SOL UD 3ML (DUONEB)(J7620) NEB (21:09)
[2017-12-25] MEDS: ATORVASTATIN 10 MG TAB GT (21:15)
[2017-12-25] MEDS: SLF 3 ML SYR IV (21:15)
[2017-12-26] MEDS: IPRATROPIUM 0.5MG/ALBUTEROL 2.5MG INH SOL UD 3ML (DUONEB)(J7620) NEB ×8 (00:03→20:41)
[2017-12-26] MEDS: SLF 3 ML SYR IV ×3 (05:43→20:52)
[2017-12-26 06:25] LABS: HEMATOCRIT 27.3 % (36.0-47.0); HEMOGLOBIN 8.6 g/dl (12.0-15.5); MEAN CORPUSCULAR HEMOGLOBIN 29.6 pg (27.0-33.0); MEAN CORPUSCULAR HGB CONC 31.5 g/dl (32.0-36.5); MEAN CORPUSCULAR VOLUME 93.8 fl (80.0-96.0); PLATELET COUNT, AUTOMATED 324 10^3/uL (150-450); RED BLOOD COUNT 2.91 10^6/uL (4.00-5.40); RED CELL DISTRIBUTION WIDTH 13.8 % (11.5-14.5); WHITE BLOOD COUNT 11.5 10^3/uL (4.0-10.0)
[2017-12-26 06:42] LABS: ALBUMIN 2.4 GM/DL (3.2-5.2); ALBUMIN/GLOBULIN RATIO 0.65 (1.00-1.93); ALKALINE PHOSPHATASE 71 U/L (45-117); ALT/SGPT 22 U/L (12-78); ANION GAP 9 MEQ/L (8-16); AST/SGOT 13 U/L (7-37); BILIRUBIN,TOTAL 0.4 MG/DL (0.2-1.0); BLOOD UREA NITROGEN 28 MG/DL (7-18); CALCIUM LEVEL 8.1 MG/DL (8.8-10.2); CARBON DIOXIDE LEVEL 27 MEQ/L (21-32); CHLORIDE LEVEL 105 MEQ/L (98-107); GLOMERULAR FILTRATION RATE 42.9 (>39); GLUCOSE, FASTING 107 MG/DL (70-100); MAGNESIUM LEVEL 2.3 MG/DL (1.8-2.4); POTASSIUM SERUM 4.4 MEQ/L (3.5-5.1); SODIUM LEVEL 141 MEQ/L (136-145); TOTAL PROTEIN 6.1 GM/DL (6.4-8.2)
[2017-12-26] MEDS: PERCOCET 5MG/325MG TAB GT ×2 (07:51→20:52)
[2017-12-26] MEDS ORDERED: PILL CRUSHER/CUTTER 1 EACH XX (08:00)
[2017-12-26] MEDS: NS 1,000 ML IV (10:41)
[2017-12-26] MEDS: ATENOLOL 25 MG TAB GT (10:41)
[2017-12-26] MEDS: CIPROFLOXACIN 400 MG in APPROPRIATE DILUENT 1 EA IV (14:09)
[2017-12-26] MEDS: ATORVASTATIN 10 MG TAB GT (20:52)
[2017-12-27] MEDS: IPRATROPIUM 0.5MG/ALBUTEROL 2.5MG INH SOL UD 3ML (DUONEB)(J7620) NEB ×7 (00:44→23:55)
[2017-12-27] MEDS: CIPROFLOXACIN 400 MG in APPROPRIATE DILUENT 1 EA IV ×2 (02:06→16:35)
[2017-12-27] MEDS: NS 1,000 ML IV (02:06)
[2017-12-27] MEDS: SLF 3 ML SYR IV ×3 (02:07→21:00)
[2017-12-27 05:28] LABS: HEMATOCRIT 26.4 % (36.0-47.0); HEMOGLOBIN 8.4 g/dl (12.0-15.5); MEAN CORPUSCULAR HEMOGLOBIN 29.8 pg (27.0-33.0); MEAN CORPUSCULAR HGB CONC 31.8 g/dl (32.0-36.5); MEAN CORPUSCULAR VOLUME 93.6 fl (80.0-96.0); PLATELET COUNT, AUTOMATED 298 10^3/uL (150-450); RED BLOOD COUNT 2.82 10^6/uL (4.00-5.40); RED CELL DISTRIBUTION WIDTH 13.8 % (11.5-14.5); WHITE BLOOD COUNT 11.2 10^3/uL (4.0-10.0)
[2017-12-27 05:48] LABS: ALBUMIN 2.2 GM/DL (3.2-5.2); ALBUMIN/GLOBULIN RATIO 0.58 (1.00-1.93); ALKALINE PHOSPHATASE 63 U/L (45-117); ALT/SGPT 22 U/L (12-78); ANION GAP 9 MEQ/L (8-16); AST/SGOT 17 U/L (7-37); BILIRUBIN,TOTAL 0.4 MG/DL (0.2-1.0); BLOOD UREA NITROGEN 21 MG/DL (7-18); CALCIUM LEVEL 7.9 MG/DL (8.8-10.2); CARBON DIOXIDE LEVEL 24 MEQ/L (21-32); CHLORIDE LEVEL 107 MEQ/L (98-107); CREATININE FOR GFR 1.19 MG/DL (0.55-1.30); GLOMERULAR FILTRATION RATE 47.5 (>39); GLUCOSE, FASTING 100 MG/DL (70-100); MAGNESIUM LEVEL 2.2 MG/DL (1.8-2.4); POTASSIUM SERUM 4.4 MEQ/L (3.5-5.1); SODIUM LEVEL 140 MEQ/L (136-145)
[2017-12-27] MEDS: PERCOCET 5MG/325MG TAB GT (09:27)
[2017-12-27] MEDS: ATENOLOL 25 MG TAB GT (09:28)
[2017-12-27] MEDS: ATENOLOL 25 MG TAB PO (17:20)
[2017-12-27] MEDS: METOPROLOL 5 MG/5 ML VIAL IV (20:37)
[2017-12-27] MEDS: guaiFENesin SYRUP 200 MG/10 ML UDC GT (20:56)
[2017-12-27] MEDS: ATORVASTATIN 10 MG TAB GT (20:56)
[2017-12-27] MEDS: DIGOXIN INJ 0.5 MG/2 ML AMP (J1160) IV (23:03)
[2017-12-28] MEDS: CIPROFLOXACIN 400 MG in APPROPRIATE DILUENT 1 EA IV ×2 (02:22→16:41)
[2017-12-28] MEDS: IPRATROPIUM 0.5MG/ALBUTEROL 2.5MG INH SOL UD 3ML (DUONEB)(J7620) NEB ×7 (02:40→23:20)
[2017-12-28] MEDS: ONDANSETRON 4MG/2ML VIAL (J2405) IV (05:07)
[2017-12-28] MEDS: SLF 3 ML SYR IV ×3 (05:08→21:40)
[2017-12-28 05:34] LABS: HEMATOCRIT 26.3 % (36.0-47.0); HEMOGLOBIN 8.3 g/dl (12.0-15.5); MEAN CORPUSCULAR HEMOGLOBIN 29.4 pg (27.0-33.0); MEAN CORPUSCULAR HGB CONC 31.6 g/dl (32.0-36.5); MEAN CORPUSCULAR VOLUME 93.3 fl (80.0-96.0); PLATELET COUNT, AUTOMATED 361 10^3/uL (150-450); RED BLOOD COUNT 2.82 10^6/uL (4.00-5.40); RED CELL DISTRIBUTION WIDTH 13.7 % (11.5-14.5); WHITE BLOOD COUNT 11.5 10^3/uL (4.0-10.0)
[2017-12-28 05:52] LABS: ALBUMIN 2.3 GM/DL (3.2-5.2); ALBUMIN/GLOBULIN RATIO 0.55 (1.00-1.93); ALKALINE PHOSPHATASE 67 U/L (45-117); ALT/SGPT 29 U/L (12-78); ANION GAP 8 MEQ/L (8-16); AST/SGOT 23 U/L (7-37); BILIRUBIN,TOTAL 0.4 MG/DL (0.2-1.0); BLOOD UREA NITROGEN 21 MG/DL (7-18); CARBON DIOXIDE LEVEL 24 MEQ/L (21-32); CHLORIDE LEVEL 108 MEQ/L (98-107); CREATININE FOR GFR 1.22 MG/DL (0.55-1.30); GLOMERULAR FILTRATION RATE 46.1 (>39); GLUCOSE, FASTING 115 MG/DL (70-100); MAGNESIUM LEVEL 2.1 MG/DL (1.8-2.4); POTASSIUM SERUM 4.3 MEQ/L (3.5-5.1); SODIUM LEVEL 140 MEQ/L (136-145); TOTAL PROTEIN 6.5 GM/DL (6.4-8.2)
[2017-12-28] MEDS: PERCOCET 5MG/325MG TAB GT ×3 (09:57→21:35)
[2017-12-28] MEDS: ATENOLOL 25 MG TAB GT (09:58)
[2017-12-28] MEDS: guaiFENesin SYRUP 200 MG/10 ML UDC GT (09:58)
[2017-12-28] MEDS ORDERED: LIDOCAINE 1% MDV 20ML VIAL As Ordered (13:16)
[2017-12-28 13:56] LABS: INR 1.46; PROTHROMBIN TIME 18.1 SECONDS (12.4-14.5)
[2017-12-28] MEDS: ATORVASTATIN 10 MG TAB GT (21:35)
[2017-12-29] MEDS: CIPROFLOXACIN 400 MG in APPROPRIATE DILUENT 1 EA IV ×2 (03:08→14:19)
[2017-12-29] MEDS: IPRATROPIUM 0.5MG/ALBUTEROL 2.5MG INH SOL UD 3ML (DUONEB)(J7620) NEB ×6 (03:28→23:57)
[2017-12-29 04:35] LABS: HEMATOCRIT 26.3 % (36.0-47.0); HEMOGLOBIN 8.1 g/dl (12.0-15.5); MEAN CORPUSCULAR HEMOGLOBIN 29.3 pg (27.0-33.0); MEAN CORPUSCULAR HGB CONC 30.8 g/dl (32.0-36.5); MEAN CORPUSCULAR VOLUME 95.3 fl (80.0-96.0); PLATELET COUNT, AUTOMATED 370 10^3/uL (150-450); RED BLOOD COUNT 2.76 10^6/uL (4.00-5.40); WHITE BLOOD COUNT 9.2 10^3/uL (4.0-10.0)
[2017-12-29 04:56] LABS: ALBUMIN 2.4 GM/DL (3.2-5.2); ALBUMIN/GLOBULIN RATIO 0.56 (1.00-1.93); ALKALINE PHOSPHATASE 77 U/L (45-117); ALT/SGPT 34 U/L (12-78); ANION GAP 8 MEQ/L (8-16); AST/SGOT 27 U/L (7-37); BILIRUBIN,TOTAL 0.3 MG/DL (0.2-1.0); BLOOD UREA NITROGEN 24 MG/DL (7-18); CALCIUM LEVEL 8.2 MG/DL (8.8-10.2); CARBON DIOXIDE LEVEL 27 MEQ/L (21-32); CHLORIDE LEVEL 106 MEQ/L (98-107); CREATININE FOR GFR 1.23 MG/DL (0.55-1.30); GLOMERULAR FILTRATION RATE 45.7 (>39); GLUCOSE, FASTING 111 MG/DL (70-100); MAGNESIUM LEVEL 2.5 MG/DL (1.8-2.4); POTASSIUM SERUM 4.4 MEQ/L (3.5-5.1); SODIUM LEVEL 141 MEQ/L (136-145); TOTAL PROTEIN 6.7 GM/DL (6.4-8.2)
[2017-12-29] MEDS: SLF 3 ML SYR IV ×3 (06:00→22:00)
[2017-12-29] MEDS: ATENOLOL 25 MG TAB GT (09:07)
[2017-12-29] MEDS: PERCOCET 5MG/325MG TAB GT ×2 (09:08→21:06)
[2017-12-29] MEDS: guaiFENesin SYRUP 200 MG/10 ML UDC GT ×2 (09:08→21:06)
[2017-12-29] MEDS: ATORVASTATIN 10 MG TAB GT (21:04)
[2017-12-30] MEDS: CIPROFLOXACIN 400 MG in APPROPRIATE DILUENT 1 EA IV (03:13)
[2017-12-30] MEDS: IPRATROPIUM 0.5MG/ALBUTEROL 2.5MG INH SOL UD 3ML (DUONEB)(J7620) NEB ×5 (04:20→21:16)
[2017-12-30 05:12] LABS: HEMOGLOBIN 7.4 g/dl (12.0-15.5); MEAN CORPUSCULAR HEMOGLOBIN 28.7 pg (27.0-33.0); MEAN CORPUSCULAR HGB CONC 30.8 g/dl (32.0-36.5); PLATELET COUNT, AUTOMATED 330 10^3/uL (150-450); RED BLOOD COUNT 2.58 10^6/uL (4.00-5.40); RED CELL DISTRIBUTION WIDTH 13.5 % (11.5-14.5); WHITE BLOOD COUNT 9.7 10^3/uL (4.0-10.0)
[2017-12-30 05:33] LABS: ALBUMIN 2.3 GM/DL (3.2-5.2); ALBUMIN/GLOBULIN RATIO 0.59 (1.00-1.93); ALKALINE PHOSPHATASE 71 U/L (45-117); ALT/SGPT 36 U/L (12-78); ANION GAP 9 MEQ/L (8-16); AST/SGOT 27 U/L (7-37); BILIRUBIN,TOTAL 0.3 MG/DL (0.2-1.0); BLOOD UREA NITROGEN 29 MG/DL (7-18); CALCIUM LEVEL 7.8 MG/DL (8.8-10.2); CARBON DIOXIDE LEVEL 26 MEQ/L (21-32); CHLORIDE LEVEL 105 MEQ/L (98-107); CREATININE FOR GFR 1.19 MG/DL (0.55-1.30); FERRITIN 151 NG/ML (8-252); GLOMERULAR FILTRATION RATE 47.5 (>39); GLUCOSE, FASTING 115 MG/DL (70-100); IRON (FE) 14 UG/DL (50-170); MAGNESIUM LEVEL 2.4 MG/DL (1.8-2.4); PERCENT SATURATION 7.3 % (13.2-45.0); POTASSIUM SERUM 4.7 MEQ/L (3.5-5.1); SODIUM LEVEL 140 MEQ/L (136-145); TOTAL IRON BINDING CAPACITY 193 UG/DL (250-450); TOTAL PROTEIN 6.2 GM/DL (6.4-8.2)
[2017-12-30] MEDS: SLF 3 ML SYR IV ×3 (06:00→21:33)
[2017-12-30 06:37] LABS: HEMATOCRIT 24.8 % (36.0-47.0)
[2017-12-30] MEDS: guaiFENesin SYRUP 200 MG/10 ML UDC GT ×2 (09:04→21:37)
[2017-12-30] MEDS: FERROUS SULFATE 300MG/5ML UDC LIQUID PEG ×2 (09:04→21:31)
[2017-12-30] MEDS: ATENOLOL 25 MG TAB GT (09:05)
[2017-12-30] MEDS: PERCOCET 5MG/325MG TAB GT ×3 (09:05→21:32)
[2017-12-30] MEDS: CIPROFLOXACIN 500 MG TAB PEG (17:03)
[2017-12-30] MEDS: ATORVASTATIN 10 MG TAB GT (21:31)
[2017-12-31] MEDS: IPRATROPIUM 0.5MG/ALBUTEROL 2.5MG INH SOL UD 3ML (DUONEB)(J7620) NEB ×7 (00:29→23:45)
[2017-12-31 05:54] LABS: HEMATOCRIT 25.2 % (36.0-47.0); HEMOGLOBIN 7.9 g/dl (12.0-15.5); MEAN CORPUSCULAR HEMOGLOBIN 28.8 pg (27.0-33.0); MEAN CORPUSCULAR HGB CONC 31.3 g/dl (32.0-36.5); PLATELET COUNT, AUTOMATED 381 10^3/uL (150-450); RED BLOOD COUNT 2.74 10^6/uL (4.00-5.40); RED CELL DISTRIBUTION WIDTH 13.6 % (11.5-14.5); WHITE BLOOD COUNT 10.8 10^3/uL (4.0-10.0)
[2017-12-31] MEDS: CIPROFLOXACIN 500 MG TAB PEG ×2 (05:58→17:58)
[2017-12-31] MEDS: SLF 3 ML SYR IV ×3 (05:59→21:26)
[2017-12-31] MEDS: PERCOCET 5MG/325MG TAB GT (05:59)
[2017-12-31 06:18] LABS: ALBUMIN 2.3 GM/DL (3.2-5.2); ALBUMIN/GLOBULIN RATIO 0.56 (1.00-1.93); ALKALINE PHOSPHATASE 75 U/L (45-117); ALT/SGPT 36 U/L (12-78); ANION GAP 6 MEQ/L (8-16); AST/SGOT 22 U/L (7-37); BILIRUBIN,TOTAL 0.3 MG/DL (0.2-1.0); BLOOD UREA NITROGEN 29 MG/DL (7-18); CALCIUM LEVEL 8.6 MG/DL (8.8-10.2); CARBON DIOXIDE LEVEL 29 MEQ/L (21-32); CHLORIDE LEVEL 103 MEQ/L (98-107); CREATININE FOR GFR 1.13 MG/DL (0.55-1.30); GLOMERULAR FILTRATION RATE 50.4 (>39); GLUCOSE, FASTING 103 MG/DL (70-100); MAGNESIUM LEVEL 2.4 MG/DL (1.8-2.4); POTASSIUM SERUM 4.7 MEQ/L (3.5-5.1); SODIUM LEVEL 138 MEQ/L (136-145); TOTAL PROTEIN 6.4 GM/DL (6.4-8.2)
[2017-12-31] MEDS: ATENOLOL 25 MG TAB GT (08:17)
[2017-12-31] MEDS: guaiFENesin SYRUP 200 MG/10 ML UDC GT ×2 (08:19→20:41)
[2017-12-31] MEDS: FERROUS SULFATE 300MG/5ML UDC LIQUID PEG ×2 (08:23→20:41)
[2017-12-31 11:49] LABS: IMMEDIATE SPIN CROSSMATCH 1 1
[2017-12-31] MEDS: PERCOCET 5MG/325MG TAB PO ×2 (15:04→20:41)
[2017-12-31 17:42] LABS: HEMOGLOBIN 9.5 g/dl (12.0-15.5)
[2017-12-31] MEDS: DICLOFENAC EPOLAMINE 1.3 % PATCH TOP (19:57)
[2017-12-31] MEDS: ATORVASTATIN 10 MG TAB GT (20:41)
[2018-01-01] MEDS: IPRATROPIUM 0.5MG/ALBUTEROL 2.5MG INH SOL UD 3ML (DUONEB)(J7620) NEB ×7 (04:40→23:51)
[2018-01-01 05:40] LABS: HEMATOCRIT 29.7 % (36.0-47.0); HEMOGLOBIN 9.4 g/dl (12.0-15.5); MEAN CORPUSCULAR HGB CONC 31.6 g/dl (32.0-36.5); MEAN CORPUSCULAR VOLUME 91.7 fl (80.0-96.0); PLATELET COUNT, AUTOMATED 377 10^3/uL (150-450); RED BLOOD COUNT 3.24 10^6/uL (4.00-5.40); RED CELL DISTRIBUTION WIDTH 14.1 % (11.5-14.5)
[2018-01-01 06:09] LABS: ALBUMIN 2.4 GM/DL (3.2-5.2); ALBUMIN/GLOBULIN RATIO 0.71 (1.00-1.93); ALKALINE PHOSPHATASE 79 U/L (45-117); ALT/SGPT 35 U/L (12-78); ANION GAP 10 MEQ/L (8-16); AST/SGOT 17 U/L (7-37); BILIRUBIN,TOTAL 0.5 MG/DL (0.2-1.0); BLOOD UREA NITROGEN 29 MG/DL (7-18); CALCIUM LEVEL 8.3 MG/DL (8.8-10.2); CARBON DIOXIDE LEVEL 28 MEQ/L (21-32); CHLORIDE LEVEL 103 MEQ/L (98-107); CREATININE FOR GFR 1.14 MG/DL (0.55-1.30); GLOMERULAR FILTRATION RATE 49.9 (>39); GLUCOSE, FASTING 97 MG/DL (70-100); MAGNESIUM LEVEL 2.5 MG/DL (1.8-2.4); POTASSIUM SERUM 5.1 MEQ/L (3.5-5.1); RHEUMATOID FACTOR QUANT < 10.0 IU/ML (<15.0); SODIUM LEVEL 141 MEQ/L (136-145); TOTAL PROTEIN 5.8 GM/DL (6.4-8.2); URIC ACID 5.8 MG/DL (2.6-6.0)
[2018-01-01 06:12] LABS: ERYTHROCYTE SEDIMENTATION RATE > 140 mm/hr (0-30)
[2018-01-01] MEDS: DICLOFENAC EPOLAMINE 1.3 % PATCH TOP ×2 (06:55→18:27)
[2018-01-01] MEDS: PERCOCET 5MG/325MG TAB PO ×2 (06:56→18:40)
[2018-01-01] MEDS: SLF 3 ML SYR IV ×3 (06:56→21:00)
[2018-01-01] MEDS: CIPROFLOXACIN 500 MG TAB PEG ×2 (06:56→18:25)
[2018-01-01 08:06] LABS: TRANSFERRIN 147 mg/dL (200-370)
[2018-01-01] MEDS: FERROUS SULFATE 300MG/5ML UDC LIQUID PEG ×2 (08:40→20:08)
[2018-01-01] MEDS: ATENOLOL 25 MG TAB GT (08:40)
[2018-01-01] MEDS: predniSONE 20 MG TAB PO ×2 (11:22→20:08)
[2018-01-01] MEDS: ATORVASTATIN 10 MG TAB GT (20:08)
[2018-01-02] MEDS: IPRATROPIUM 0.5MG/ALBUTEROL 2.5MG INH SOL UD 3ML (DUONEB)(J7620) NEB ×7 (02:01→23:44)
[2018-01-02 06:11] LABS: HEMATOCRIT 29.2 % (36.0-47.0); HEMOGLOBIN 9.6 g/dl (12.0-15.5); MEAN CORPUSCULAR HEMOGLOBIN 29.5 pg (27.0-33.0); MEAN CORPUSCULAR HGB CONC 32.9 g/dl (32.0-36.5); MEAN CORPUSCULAR VOLUME 89.8 fl (80.0-96.0); PLATELET COUNT, AUTOMATED 431 10^3/uL (150-450); RED BLOOD COUNT 3.25 10^6/uL (4.00-5.40); RED CELL DISTRIBUTION WIDTH 13.7 % (11.5-14.5); WHITE BLOOD COUNT 11.1 10^3/uL (4.0-10.0)
[2018-01-02] MEDS: DICLOFENAC EPOLAMINE 1.3 % PATCH TOP ×2 (06:25→18:12)
[2018-01-02] MEDS: SLF 3 ML SYR IV ×3 (06:26→21:04)
[2018-01-02] MEDS: PERCOCET 5MG/325MG TAB PO ×2 (06:26→12:23)
[2018-01-02] MEDS: CIPROFLOXACIN 500 MG TAB PEG ×2 (06:26→18:00)
[2018-01-02 06:31] LABS: ALBUMIN 2.4 GM/DL (3.2-5.2); ALBUMIN/GLOBULIN RATIO 0.53 (1.00-1.93); ALKALINE PHOSPHATASE 73 U/L (45-117); ALT/SGPT 36 U/L (12-78); ANION GAP 7 MEQ/L (8-16); AST/SGOT 20 U/L (7-37); BILIRUBIN,TOTAL 0.3 MG/DL (0.2-1.0); BLOOD UREA NITROGEN 31 MG/DL (7-18); CALCIUM LEVEL 8.5 MG/DL (8.8-10.2); CARBON DIOXIDE LEVEL 29 MEQ/L (21-32); CHLORIDE LEVEL 103 MEQ/L (98-107); CREATININE FOR GFR 1.16 MG/DL (0.55-1.30); GLOMERULAR FILTRATION RATE 48.9 (>39); GLUCOSE, FASTING 153 MG/DL (70-100); POTASSIUM SERUM 5.1 MEQ/L (3.5-5.1); SODIUM LEVEL 139 MEQ/L (136-145); TOTAL PROTEIN 6.9 GM/DL (6.4-8.2)
[2018-01-02] MEDS: ATENOLOL 25 MG TAB GT (09:32)
[2018-01-02] MEDS: FERROUS SULFATE 300MG/5ML UDC LIQUID PEG ×2 (09:33→21:04)
[2018-01-02] MEDS: predniSONE 20 MG TAB PO ×2 (09:33→21:04)
[2018-01-02] MEDS: APIXABAN 5 MG TAB (ELIQUIS) PO ×2 (12:22→21:04)
[2018-01-02] MEDS: ATORVASTATIN 10 MG TAB GT (21:04)
[2018-01-03 00:06] LABS: ANA (HEP2) Positive (.)
[2018-01-03] MEDS: PERCOCET 5MG/325MG TAB PO ×4 (00:12→21:15)
[2018-01-03] MEDS: IPRATROPIUM 0.5MG/ALBUTEROL 2.5MG INH SOL UD 3ML (DUONEB)(J7620) NEB ×6 (04:15→23:35)
[2018-01-03 05:50] LABS: HEMATOCRIT 30.6 % (36.0-47.0); HEMOGLOBIN 9.8 g/dl (12.0-15.5); MEAN CORPUSCULAR HEMOGLOBIN 28.9 pg (27.0-33.0); MEAN CORPUSCULAR VOLUME 90.3 fl (80.0-96.0); PLATELET COUNT, AUTOMATED 453 10^3/uL (150-450); RED BLOOD COUNT 3.39 10^6/uL (4.00-5.40); RED CELL DISTRIBUTION WIDTH 13.7 % (11.5-14.5); WHITE BLOOD COUNT 13.3 10^3/uL (4.0-10.0)
[2018-01-03] MEDS: SLF 3 ML SYR IV ×3 (06:26→21:16)
[2018-01-03] MEDS: CIPROFLOXACIN 500 MG TAB PEG ×2 (06:26→21:14)
[2018-01-03] MEDS: DICLOFENAC EPOLAMINE 1.3 % PATCH TOP ×2 (06:27→21:14)
[2018-01-03] MEDS: predniSONE 20 MG TAB PO (08:49)
[2018-01-03] MEDS: ATENOLOL 25 MG TAB GT (08:49)
[2018-01-03] MEDS: FERROUS SULFATE 300MG/5ML UDC LIQUID PEG ×2 (08:49→21:14)
[2018-01-03] MEDS: APIXABAN 5 MG TAB (ELIQUIS) PO ×2 (08:49→21:14)
[2018-01-03 12:27] LABS: ALBUMIN 2.62 GM/DL (3.29-5.55); ALBUMIN % 45.2 % (55.8-66.1); ALPHA-1-GLOBULIN % 11.3 % (2.9-4.9); ALPHA-1-GLOBULINS 0.66 GM/DL (0.17-0.41); ALPHA-2-GLOBULINS 1.17 GM/DL (0.42-0.99); ALPHA-2-GLOBULINS % 20.1 % (7.1-11.8); BETA-1-GLOBULINS 0.32 GM/DL (0.28-0.60); BETA-1-GLOBULINS % 5.6 % (4.7-7.2); BETA-2-GLOBULINS 0.35 GM/DL (0.19-0.55); GAMMA GLOBULIN % 11.8 % (11.1-18.8); GAMMA GLOBULINS 0.68 GM/DL (0.65-1.58)
[2018-01-03 13:12] LABS: TOTAL PROTEIN 5.8 GM/DL (6.4-8.2)
[2018-01-03] MEDS: predniSONE 10 MG TAB PO (21:14)
[2018-01-03] MEDS: ATORVASTATIN 10 MG TAB GT (21:14)
[2018-01-04] MEDS: IPRATROPIUM 0.5MG/ALBUTEROL 2.5MG INH SOL UD 3ML (DUONEB)(J7620) NEB ×6 (03:03→23:57)
[2018-01-04 05:49] LABS: HEMATOCRIT 32.6 % (36.0-47.0); HEMOGLOBIN 10.4 g/dl (12.0-15.5); MEAN CORPUSCULAR HEMOGLOBIN 28.7 pg (27.0-33.0); MEAN CORPUSCULAR HGB CONC 31.9 g/dl (32.0-36.5); MEAN CORPUSCULAR VOLUME 89.8 fl (80.0-96.0); PLATELET COUNT, AUTOMATED 526 10^3/uL (150-450); RED BLOOD COUNT 3.63 10^6/uL (4.00-5.40); RED CELL DISTRIBUTION WIDTH 13.8 % (11.5-14.5)
[2018-01-04] MEDS: SLF 3 ML SYR IV ×3 (06:00→22:00)
[2018-01-04] MEDS: CIPROFLOXACIN 500 MG TAB PEG ×3 (06:20→18:20)
[2018-01-04] MEDS: FERROUS SULFATE 300MG/5ML UDC LIQUID PEG ×2 (09:33→20:42)
[2018-01-04] MEDS: predniSONE 20 MG TAB PO (09:34)
[2018-01-04] MEDS: APIXABAN 5 MG TAB (ELIQUIS) PO ×2 (09:34→20:41)
[2018-01-04] MEDS: ATENOLOL 25 MG TAB GT (09:34)
[2018-01-04] MEDS: DICLOFENAC EPOLAMINE 1.3 % PATCH TOP ×2 (09:35→20:43)
[2018-01-04] MEDS: PERCOCET 5MG/325MG TAB PO (12:00)
[2018-01-04] MEDS: predniSONE 10 MG TAB PO (20:41)
[2018-01-04] MEDS: ATORVASTATIN 10 MG TAB GT (20:41)
[2018-01-04] MEDS: PERCOCET 5MG/325MG TAB GT (20:42)
[2018-01-05] MEDS: IPRATROPIUM 0.5MG/ALBUTEROL 2.5MG INH SOL UD 3ML (DUONEB)(J7620) NEB ×6 (04:13→23:45)
[2018-01-05 05:07] LABS: HEMATOCRIT 33.7 % (36.0-47.0); HEMOGLOBIN 10.8 g/dl (12.0-15.5); MEAN CORPUSCULAR VOLUME 90.3 fl (80.0-96.0); PLATELET COUNT, AUTOMATED 516 10^3/uL (150-450); RED BLOOD COUNT 3.73 10^6/uL (4.00-5.40); RED CELL DISTRIBUTION WIDTH 13.8 % (11.5-14.5); WHITE BLOOD COUNT 15.1 10^3/uL (4.0-10.0)
[2018-01-05] MEDS: CIPROFLOXACIN 500 MG TAB PEG ×2 (05:53→17:42)
[2018-01-05] MEDS: PERCOCET 5MG/325MG TAB GT (05:53)
[2018-01-05] MEDS: SLF 3 ML SYR IV ×3 (05:54→21:31)
[2018-01-05] MEDS: DICLOFENAC EPOLAMINE 1.3 % PATCH TOP ×2 (09:46→21:22)
[2018-01-05] MEDS: FERROUS SULFATE 300MG/5ML UDC LIQUID PEG ×2 (09:46→21:22)
[2018-01-05] MEDS: APIXABAN 5 MG TAB (ELIQUIS) PO ×2 (09:47→21:19)
[2018-01-05] MEDS: ATENOLOL 25 MG TAB GT (09:47)
[2018-01-05] MEDS: predniSONE 20 MG TAB PO (09:48)
[2018-01-05] MEDS: PERCOCET 5MG/325MG TAB PO ×2 (14:29→21:21)
[2018-01-05] MEDS: ATORVASTATIN 10 MG TAB GT (21:19)
[2018-01-05] MEDS: predniSONE 10 MG TAB PO (21:21)
[2018-01-05] MEDS: zolPIDEM TARTRATE 5 MG TAB PO (21:22)
[2018-01-06] MEDS: IPRATROPIUM 0.5MG/ALBUTEROL 2.5MG INH SOL UD 3ML (DUONEB)(J7620) NEB ×5 (04:29→20:20)
[2018-01-06 04:56] LABS: HEMATOCRIT 33.5 % (36.0-47.0); HEMOGLOBIN 10.8 g/dl (12.0-15.5); MEAN CORPUSCULAR HEMOGLOBIN 28.8 pg (27.0-33.0); MEAN CORPUSCULAR HGB CONC 32.2 g/dl (32.0-36.5); MEAN CORPUSCULAR VOLUME 89.3 fl (80.0-96.0); PLATELET COUNT, AUTOMATED 530 10^3/uL (150-450); RED BLOOD COUNT 3.75 10^6/uL (4.00-5.40); RED CELL DISTRIBUTION WIDTH 13.9 % (11.5-14.5); WHITE BLOOD COUNT 16.8 10^3/uL (4.0-10.0)
[2018-01-06 05:13] LABS: ANION GAP 7 MEQ/L (8-16); BLOOD UREA NITROGEN 51 MG/DL (7-18); CALCIUM LEVEL 8.6 MG/DL (8.8-10.2); CARBON DIOXIDE LEVEL 29 MEQ/L (21-32); CHLORIDE LEVEL 102 MEQ/L (98-107); CREATININE FOR GFR 1.22 MG/DL (0.55-1.30); GLOMERULAR FILTRATION RATE 46.1 (>39); GLUCOSE, FASTING 129 MG/DL (70-100); SODIUM LEVEL 138 MEQ/L (136-145)
[2018-01-06 05:14] LABS: ADD MANUAL DIFFER YES; DIFF SLIDE NUMBER 53; POS COUNT POS FLAG; POSITIVE MORPH POS FLAG
[2018-01-06 05:20] LABS: POTASSIUM SERUM 5.4 MEQ/L (3.5-5.1)
[2018-01-06 05:40] LABS: BANDS 2 % (< 11); EOSINOPHILS 1 % (0-5); LYMPHOCYTES 4 % (16-52); MONOCYTES 6 % (0-8); MYELOCYTES 5 % (0-0); NEUTROPHILS 82 % (35-75); PLATELET ESTIMATE INCREASED (NORMAL)
[2018-01-06] MEDS: CIPROFLOXACIN 500 MG TAB PEG (05:54)
[2018-01-06] MEDS: SLF 3 ML SYR IV ×3 (05:54→21:32)
[2018-01-06] MEDS: DICLOFENAC EPOLAMINE 1.3 % PATCH TOP ×2 (08:59→19:00)
[2018-01-06] MEDS: ATENOLOL 25 MG TAB GT (08:59)
[2018-01-06] MEDS: FERROUS SULFATE 300MG/5ML UDC LIQUID PEG ×2 (08:59→21:31)
[2018-01-06] MEDS: ONDANSETRON 4MG/2ML VIAL (J2405) IV (09:00)
[2018-01-06] MEDS: APIXABAN 5 MG TAB (ELIQUIS) PO ×2 (09:00→21:31)
[2018-01-06] MEDS: predniSONE 20 MG TAB PO (09:00)
[2018-01-06] MEDS ORDERED: zolPIDEM TARTRATE 5 MG TAB GT (16:30)
[2018-01-06] MEDS: PERCOCET 5MG/325MG TAB PO (21:31)
[2018-01-06] MEDS: ATORVASTATIN 10 MG TAB GT (21:31)
[2018-01-06] MEDS: predniSONE 5 MG TAB GT (21:31)
[2018-01-07] MEDS: IPRATROPIUM 0.5MG/ALBUTEROL 2.5MG INH SOL UD 3ML (DUONEB)(J7620) NEB ×6 (00:04→20:21)
[2018-01-07 05:42] LABS: HEMATOCRIT 33.2 % (36.0-47.0); HEMOGLOBIN 10.8 g/dl (12.0-15.5); MEAN CORPUSCULAR HEMOGLOBIN 29.1 pg (27.0-33.0); MEAN CORPUSCULAR HGB CONC 32.5 g/dl (32.0-36.5); MEAN CORPUSCULAR VOLUME 89.5 fl (80.0-96.0); PLATELET COUNT, AUTOMATED 496 10^3/uL (150-450); RED BLOOD COUNT 3.71 10^6/uL (4.00-5.40)
[2018-01-07 05:51] LABS: ADD MANUAL DIFFER YES; DIFF SLIDE NUMBER 45; POS COUNT POS FLAG; POSITIVE MORPH POS FLAG
[2018-01-07] MEDS: SLF 3 ML SYR IV ×3 (06:00→21:09)
[2018-01-07 06:01] LABS: ANION GAP 7 MEQ/L (8-16); BLOOD UREA NITROGEN 55 MG/DL (7-18); CALCIUM LEVEL 8.5 MG/DL (8.8-10.2); CARBON DIOXIDE LEVEL 31 MEQ/L (21-32); CHLORIDE LEVEL 102 MEQ/L (98-107); CREATININE FOR GFR 1.24 MG/DL (0.55-1.30); GLOMERULAR FILTRATION RATE 45.3 (>39); GLUCOSE, FASTING 115 MG/DL (70-100); POTASSIUM SERUM 4.9 MEQ/L (3.5-5.1); SODIUM LEVEL 140 MEQ/L (136-145)
[2018-01-07 07:03] LABS: BANDS 3 % (< 11); LYMPHOCYTES 10 % (16-52); METAMYELOCYTES 2 % (0-0); MONOCYTES 7 % (0-8); MYELOCYTES 10 % (0-0); NEUTROPHILS 68 % (35-75); PLATELET ESTIMATE INCREASED (NORMAL)
[2018-01-07] MEDS: DICLOFENAC EPOLAMINE 1.3 % PATCH TOP ×2 (09:08→21:08)
[2018-01-07] MEDS: CIPROFLOXACIN 500 MG TAB PEG (09:09)
[2018-01-07] MEDS: PERCOCET 5MG/325MG TAB PO ×2 (09:09→21:08)
[2018-01-07] MEDS: APIXABAN 5 MG TAB (ELIQUIS) PO ×2 (09:10→21:09)
[2018-01-07] MEDS: predniSONE 10 MG TAB GT (09:10)
[2018-01-07] MEDS: ATENOLOL 25 MG TAB GT (09:10)
[2018-01-07] MEDS: FERROUS SULFATE 300MG/5ML UDC LIQUID PEG ×2 (13:00→21:08)
[2018-01-07] MEDS: ATORVASTATIN 10 MG TAB GT (21:06)
[2018-01-07] MEDS: predniSONE 5 MG TAB GT (21:08)
[2018-01-08] MEDS: IPRATROPIUM 0.5MG/ALBUTEROL 2.5MG INH SOL UD 3ML (DUONEB)(J7620) NEB ×4 (00:07→11:35)
[2018-01-08] MEDS: PERCOCET 5MG/325MG TAB PO (05:44)
[2018-01-08] MEDS: SLF 3 ML SYR IV (05:45)
[2018-01-08 06:43] LABS: ADD MANUAL DIFFER YES; HEMATOCRIT 35.1 % (36.0-47.0); MEAN CORPUSCULAR HEMOGLOBIN 28.5 pg (27.0-33.0); MEAN CORPUSCULAR HGB CONC 31.3 g/dl (32.0-36.5); MEAN CORPUSCULAR VOLUME 90.9 fl (80.0-96.0); PLATELET COUNT, AUTOMATED 527 10^3/uL (150-450); POS COUNT POS FLAG; POSITIVE MORPH POS FLAG; RED BLOOD COUNT 3.86 10^6/uL (4.00-5.40); RED CELL DISTRIBUTION WIDTH 14.1 % (11.5-14.5); WHITE BLOOD COUNT 15.8 10^3/uL (4.0-10.0)
[2018-01-08 06:44] LABS: DIFF SLIDE NUMBER 43
[2018-01-08 06:55] LABS: ANION GAP 8 MEQ/L (8-16); BLOOD UREA NITROGEN 56 MG/DL (7-18); CARBON DIOXIDE LEVEL 30 MEQ/L (21-32); CHLORIDE LEVEL 101 MEQ/L (98-107); CREATININE FOR GFR 1.21 MG/DL (0.55-1.30); GLOMERULAR FILTRATION RATE 46.6 (>39); GLUCOSE, FASTING 101 MG/DL (70-100); POTASSIUM SERUM 4.8 MEQ/L (3.5-5.1); SODIUM LEVEL 139 MEQ/L (136-145)
[2018-01-08 07:16] LABS: LYMPHOCYTES 11 % (16-52); METAMYELOCYTES 8 % (0-0); MONOCYTES 2 % (0-8); MYELOCYTES 5 % (0-0); NEUTROPHILS 74 % (35-75)
[2018-01-08 07:17] LABS: PLATELET ESTIMATE INCREASED (NORMAL)
[2018-01-08] MEDS: predniSONE 10 MG TAB GT (08:12)
[2018-01-08] MEDS: APIXABAN 5 MG TAB (ELIQUIS) PO (08:12)
[2018-01-08] MEDS: FERROUS SULFATE 300MG/5ML UDC LIQUID PEG (08:12)
[2018-01-08] MEDS: DICLOFENAC EPOLAMINE 1.3 % PATCH TOP (08:13)
[2018-01-08] MEDS: ATENOLOL 25 MG TAB GT (08:19)
== END 2018-01-08 12:03 | disposition home health service (06) | DRG 988 ==
LOC: M MSPAV 01-07 20:43 → M ED 10:35 → M ED INP 17:07 → M PCU 20:00
PROC: 0QB13ZX Excision of Sacrum, Percutaneous Approach, Diagnostic (ICD-10-PCS; principal; 2017-12-28)
PROC: 30233N1 Transfusion of Nonautologous Red Blood Cells into Peripheral Vein, Percutaneous Approach (ICD-10-PCS; 2017-12-31)
DX: J95.09 Other tracheostomy complication (principal); I50.32 Chronic diastolic (congestive) heart failure; C79.51 Secondary malignant neoplasm of bone; R04.2 Hemoptysis; C34.11 Malignant neoplasm of upper lobe, right bronchus or lung; I13.0 Hypertensive heart and chronic kidney disease with heart failure and stage 1 through stage 4 chronic kidney disease, or unspecified chronic kidney disease; C79.89 Secondary malignant neoplasm of other specified sites; J04.10 Acute tracheitis without obstruction; N18.3 Chronic kidney disease, stage 3 (moderate); E78.5 Hyperlipidemia, unspecified; I25.10 Atherosclerotic heart disease of native coronary artery without angina pectoris; C32.0 Malignant neoplasm of glottis; M79.672 Pain in left foot; M25.472 Effusion, left ankle; D72.829 Elevated white blood cell count, unspecified; M25.471 Effusion, right ankle; D64.9 Anemia, unspecified; I48.0 Paroxysmal atrial fibrillation; M79.671 Pain in right foot; J44.9 Chronic obstructive pulmonary disease, unspecified; Z79.01 Long term (current) use of anticoagulants; Z79.82 Long term (current) use of aspirin; Z79.899 Other long term (current) drug therapy; Z95.0 Presence of cardiac pacemaker; Z87.891 Personal history of nicotine dependence; Z88.1 Allergy status to other antibiotic agents; Z88.8 Allergy status to other drugs, medicaments and biological substances; Z85.118 Personal history of other malignant neoplasm of bronchus and lung; Y83.1 Surgical operation with implant of artificial internal device as the cause of abnormal reaction of the patient, or of later complication, without mention of misadventure at the time of the procedure

== ENCOUNTER 2018-01-09 15:40 | Emergency (ER) | payer MEDICARE, BC, OTHER ==
[2018-01-09] MEDS: IPRATROPIUM 0.5MG/ALBUTEROL 2.5MG INH SOL UD 3ML (DUONEB)(J7620) NEB (16:48)
[2018-01-09] MEDS: MORPHINE SULFATE ORAL SOLN 10 MG/5 ML UD GT (17:25)
== END 2018-01-09 19:36 | disposition home or self-care (01) ==
LOC: M ED 15:40
DX: C34.90 Malignant neoplasm of unspecified part of unspecified bronchus or lung (principal); Z93.0 Tracheostomy status; Z93.1 Gastrostomy status; Z79.01 Long term (current) use of anticoagulants; Z79.899 Other long term (current) drug therapy; Z79.82 Long term (current) use of aspirin; Z87.891 Personal history of nicotine dependence; Z79.52 Long term (current) use of systemic steroids; Z88.1 Allergy status to other antibiotic agents; Z88.8 Allergy status to other drugs, medicaments and biological substances
CPT/HCPCS: 94640